=== PATIENT | female | born 1995 | race Caucasian/White ===

== ENCOUNTER 2023-02-12 12:04 | Inpatient (IN) ==
[2023-02-12 13:24] LABS: Basophils # (auto) 0.03 K/uL (0.00-0.20); Basophils % (auto) 0.3 %; Eosinophils % (auto) 1.9 %; Hematocrit (blood only) 36.9 % (37.0-47.0); Hemoglobin 12.2 g/dl (12.0-16.0); Immature Granulocytes # (auto) 0.07 K/uL (0.01-0.20); Immature Granulocytes % (auto) 0.7 %; Lymphocytes # (auto) 2.49 K/uL (1.20-3.40); Lymphocytes % (auto) 23.5 %; Mean Corpuscular Hemoglobin 27.3 pg (25.0-34.0); Mean Corpuscular Hgb Conc 33.1 g/dL (32.0-36.0); Mean Corpuscular Volume 82.6 fL (80.0-100.0); Mean Platelet Volume 13.6 fL (9.4-12.4); Monocytes # (auto) 0.71 K/uL (0.11-0.59); Monocytes % (auto) 6.7 %; Neutrophils # (auto) 7.11 K/uL (1.40-6.50); Neutrophils % (auto) 66.9 %; Platelet Count 226 K/uL (130-400); RDW Coefficient of Variation 15.2 % (11.5-14.5); RDW Standard Deviation 45.6 fL (36.4-46.3); Red Blood Count 4.47 M/uL (4.20-5.40); White Blood Count 10.61 K/ul (4.8-10.8)
[2023-02-12] MEDS ORDERED: NIFEdipine 10 MG CAP PO STA ×2 (13:36→15:42)
[2023-02-12 13:38] LABS: Creatinine Urine Random 50.6 mg/dl; Protein Creatinine Ratio Urine 0.5 (0-0.2); Total Protein Urine Random 26.6 mg/dl (0-11.9)
[2023-02-12 13:41] LABS: Albumin Globulin Ratio 1.1 (0.9-2); Albumin Level 3.2 gm/dl (3.4-5.0); BUN Creatinine Ratio 12.8 (10-20); Bilirubin,Total 0.2 mg/dl (0.2-1.0); Calcium 8.6 mg/dl (8.6-10.3); Creatinine Clr Calc Pharmacy 151.2 ml/min; Est GFR (African American) 122.5 ml/min; Est GFR (Non-African American) 105.7 ml/min; Potassium 4.3 mmol/L (3.5-5.1); Total Protein 6.2 gm/dl (6.0-8.3)
[2023-02-12] MEDS ORDERED: OXYTOCIN 30 UNITS/500 ML BAG IV PRN ×2 (14:00→14:04)
[2023-02-12] MEDS ORDERED: LIDOCAINE 1% LOCAL 20 ML VIAL INFIL PRN (14:00)
[2023-02-12] MEDS ORDERED: MAG SULFATE 4GM BOLUS FROM BAG IV ONE (14:06)
--- NOTE | 2023-02-12 14:18 | History & Physical Report ---
Date of Service February 12, 2023 Assessment & Plan (1) Obesity affecting , antepartum: (2) Pre-eclampsia: (3) Encounter for induction of labor: Plan Will admit for IOL due to diagnosis of pre-eclampsia with severe features Patient comfortable. VSS. Fetus category 1. Cervix favorable. Induction with Andrew balloon. Pit as needed. Epidural prn. Will monitor BPs and manage with anti-hypertensives as necessary. MgSO4 to be started. History of Present Illness Chief Complaint: IOL Primary Care Provider: [facility] Idania is a 27 y/o female currently at IUP 39 4/7 WGA with an MARGY 02/15/2023 as determined by certain LMP who is here for IOL due to diagnosis of pre-eclampsia with severe features. (-) contractions (occasional BHC) (+) movement (-) fluid loss (-) bloody show External FHT and external uterine monitors used * Category 1 tracing * Moderate FHT variability. Had regular appointments since the first trimester. OB Labs: Blood Type O Positive 07/10/22 Antibody Screen NEGATIVE 07/10/22 Hemoglobin 12.5 g/dl (12.0-16.0) 11/27/22 Hematocrit 37.3 % (37.0-47.0) 11/27/22 Mean Corpuscular Volume 80.5 fL (80.0-100.0) 08/27/22 Platelet Count 312 K/uL (130-400) 08/27/22 Rubella IgG Antibody Equivocal (Immune) L 07/10/22 Rapid Plasma Reagin Nonreactive (Nonreactive) 07/10/22 Hepatitis B Surface Antigen. NON-REACTIVE (NON-REACTIVE) 07/10/22 Hepatitis C Antibody (EIA) NON-REACTIVE (NON-REACTIVE) 07/10/22 HIV (1&2) Ag and Ab Confirmation NON-REACTIVE (NON-REACTIVE) 07/10/22 Glucose 1 Hour 50 gm Load 149 mg/dl (70-130) H 09/04/22 OB Optional Labs: Chlamydia trachomatis RNA Not Detected (NotDetected) 07/10/22 Neisseria gonorrhoeae RNA Not Detected (NotDetected) 07/10/22 Labs Reviewed: low risk panorama Allergies Allergy/AdvReac Type Severity Reaction Status Date / Time Penicillins Allergy Intermediate Rash Verified 02/12/23 12:26 Home Medications Medication Instructions Recorded Confirmed Type prenat.vits,bettie,lka-gvto-gsigt 1 tab PO DAILY 07/09/22 02/12/23 History famotidine 20 mg tablet 20 mg PO BID #20 tabs 08/27/22 02/12/23 Rx sucralfate 100 mg/mL oral 10 ml PO QID #420 mL 08/27/22 02/12/23 Rx suspension (Carafate) ondansetron 4 mg disintegrating 4 mg PO Q4H PRN nausea and 09/05/22 02/12/23 Rx tablet vomiting 0 days #12 tabs Patient History Medical History Chicken pox Depressed mood Hypertension Surgical History S/P wisdom tooth extraction Family History Grandfather (Maternal) Colorectal cancer Hypertension Kidney stone Mother Hypertension Unknown Hypertension Grandmother (Maternal) Diabetes High cholesterol Denies family history of Ovarian cancer Prostate cancer Myocardial infarction Breast cancer Social History Smoking Status: Never smoker Do You Dip or Chew Tobacco: No; Hx Alcohol Use: No Hx Substance Use: No Preferred Language: Monegasque Mental Retardation Nurse Required: No Beliefs That Will Affect Care: None marital status: Current Living Situation: Spouse Current Living Situation Comment: and cats, changes litter current occupational status: 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 Date GA wks Lbr Lgth wt Sex Type del Anes Place Del Prov ? 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 Denies shortness of breath or respiratory difficulty. no chest pain and no palpitations no dysuria + headache(s) (mild (rates it 1-3 out of 10 in severity)) Physical Exam Physical Exam: General: Alert, oriented x3. Obese habitus. Afebrile. No acute distress. Eyes: Pupils equal and reactive to light bilaterally. Extraocular movement intact bilaterally. Cardiac: Regular rate and rhythm, no murmurs/rubs/gallops. Respiratory: Clear to auscultation bilaterally a/p, no wheezes/rales/rhonchi. No increased work of breathing. Symmetrical chest rise. No respiratory distress. Abdomen: Gravid; FHR baseline 140-145 Position: Cephalic Pelvic: Fingertip/ 70/ -[address] Vicente Extremities: No lower extremity edema or swelling. No deep calf pain. Meenu's negative bilaterally Results & Data Vital Signs (Past 12 Hours) Vital Signs Temp Pulse Resp BP Pulse Ox 02/12/23 13:55 105 H 02/12/23 13:55 167/116 H 02/12/23 13:29 89 L 02/12/23 13:29 101 H 02/12/23 13:28 93 02/12/23 13:28 104 H 02/12/23 13:23 98 02/12/23 13:23 99 H 02/12/23 13:18 97 02/12/23 13:18 105 H 02/12/23 13:14 96 H 02/12/23 13:14 156/109 H 02/12/23 13:13 98 02/12/23 13:13 99 H 02/12/23 13:08 97 02/12/23 13:08 95 H 02/12/23 13:05 102 H 02/12/23 13:05 187/107 H 02/12/23 13:03 98 02/12/23 13:03 108 H 02/12/23 12:58 98 02/12/23 12:58 104 H 02/12/23 12:55 102 H 02/12/23 12:55 179/105 H 02/12/23 12:53 97 02/12/23 12:53 104 H 02/12/23 12:48 98 02/12/23 12:48 111 H 02/12/23 12:43 98 02/12/23 12:43 105 H 02/12/23 12:34 98 02/12/23 12:34 105 H 02/12/23 12:34 148/103 H 02/12/23 12:29 97 02/12/23 12:29 107 H 02/12/23 12:27 36.7 C 22 02/12/23 12:24 110 H 02/12/23 12:24 105 H 145/103 H 97 02/12/23 12:19 107 H 96 02/12/23 12:14 96 02/12/23 12:14 110 H 02/12/23 12:14 106 H 92 Resident Activity Tracking Resident Involvement: Resident Care Provided Care Provided: OB Delivery
[2023-02-12] MEDS: LACTATED RINGER'S 1,000 ML IV PRN ×2 (16:22→21:37)
[2023-02-12] MEDS: MAGNESIUM SULFATE / WTR 40 GM/1,000 ML BAG IV SCH (16:56)
[2023-02-12] MEDS ORDERED: LABETALOL HCL IV 5 MG/ML 20ML IV STA (17:05)
[2023-02-12] MEDS ORDERED: ePHEDrine sulfate 50 MG/ML AMP ONE (19:42)
[2023-02-12] MEDS ORDERED: fentANYL 2 MCG/ML BUPIVacaine 0.125%-NSS 100ML BAG ONE (19:42)
[2023-02-12] MEDS ORDERED: fentaNYL citrate PF 100 MCG/2 ML VIAL ONE (19:42)
[2023-02-12] MEDS ORDERED: SODIUM CHLORIDE 0.9% PF INJ 10 ML VIAL ONE (19:42)
[2023-02-12] MEDS ORDERED: BUPIVACAINE 0.25% PF 30 ML VIAL ONE (19:43)
[2023-02-12] MEDS ORDERED: LIDOCAINE 2%/EPINEPHRINE 1:200,000 20 ML PF ONE (19:43)
[2023-02-12] MEDS ORDERED: SODIUM CHLORIDE 0.9% PF INJ 10 ML VIAL EPI STA (20:06)
[2023-02-12] MEDS ORDERED: fentaNYL citrate PF 100 MCG/2 ML VIAL EPI STA (20:06)
[2023-02-12] MEDS ORDERED: ROPIVACAINE 0.5% PF 5 MG/ML 20 ML VIAL EPI PRN (20:06)
[2023-02-12] MEDS ORDERED: NALOXONE HCL 1 MG in SODIUM CHLORIDE 0.9% 1,000 ML IV PRN (20:06)
[2023-02-12] MEDS ORDERED: BUPIVACAINE 0.25% PF 30 ML VIAL EPI STA (20:06)
[2023-02-12] MEDS ORDERED: LIDOCAINE 2% MPF LOCAL 5 ML VIAL EPI PRN (20:06)
[2023-02-12] MEDS ORDERED: NALOXONE HCL 0.4 MG/1 ML VIAL/CARP IV PRN (20:06)
[2023-02-12] MEDS ORDERED: BUPIVACAINE 0.25% PF 30 ML VIAL EPI PRN (20:06)
[2023-02-12] MEDS ORDERED: NALBUPHINE HCL INJ 10 MG/ML AMP IV PRN (20:06)
[2023-02-12] MEDS ORDERED: fentaNYL citrate PF 100 MCG/2 ML VIAL EPI PRN (20:06)
[2023-02-12] MEDS ORDERED: LIDOCAINE 2%/EPINEPHRINE 1:200,000 20 ML PF EPI STA (20:06)
[2023-02-12] MEDS ORDERED: SODIUM CHLORIDE 0.9% PF INJ 10 ML VIAL EPI PRN (20:06)
[2023-02-12] MEDS ORDERED: diphenhydrAMINE 50 MG/ML VIAL IV PRN (20:06)
--- NOTE | 2023-02-12 20:06 | Anesthesiology Consultation ---
Date of Service February 12, 2023 Assessment & Plan (1) Encounter for pre-operative examination: Chart Review Chart Review: Patient NOT seen in Pre Admission Testing and Acceptable Risk for Labor Epidural Consults Requested none History Height/Weight Height: 5 ft 4 in Weight: 135.171 kg Allergies Allergy/AdvReac Type Severity Reaction Status Date / Time Penicillins Allergy Intermediate Rash Verified 02/12/23 12:26 Medications Home Medications Medication Instructions Recorded Confirmed Last Taken prenat.vits,bettie,bph-grna-bepif 1 tab PO DAILY 07/09/22 02/12/23 02/11/23 famotidine 20 mg tablet 20 mg PO BID #20 tabs 08/27/22 02/12/23 02/11/23 sucralfate 100 mg/mL oral 10 ml PO QID #420 mL 08/27/22 02/12/23 Unknown suspension (Carafate) ondansetron 4 mg disintegrating 4 mg PO Q4H PRN nausea and 09/05/22 02/12/23 Unknown tablet vomiting 0 days #12 tabs aspirin 81 mg tablet 81 mg PO DAILY 02/12/23 02/12/23 02/11/23 doxylamine succinate 25 mg tablet 1 mg PO HS 02/12/23 02/12/23 Unknown (Unisom (doxylamine)) omeprazole 20 mg capsule,delayed 20 mg PO DAILY 02/12/23 02/12/23 02/11/23 release Active Medications Generic Name Dose Route Start Last Admin Trade Name Freq PRN Reason Stop Dose Admin Lactated Ringer's 1,000 mls @ 125 mls/hr 02/12/23 14:00 02/12/23 16:57 Lr IV 02/14/23 13:59 75 mls/hr .Q8H PRN Infusion L&D Protocol Protocol Oxytocin 30 units in 500 mls @ 10 mls/hr 02/12/23 14:04 02/12/23 19:02 Pitocin IV 02/14/23 14:03 0.6 units/hr .Q24H PRN 10 mls/hr Labor Induction/Augmentation Titration Protocol 0.6 UNITS/HR Magnesium Sulfate 40 gm in 1,000 mls @ 50 mls/hr 02/12/23 14:15 02/12/23 19:03 Magnesium Sulfate / Wtr IV 03/14/23 14:14 50 mls/hr .Q20H BREANNE Infusion Past Medical History Medical History Chicken pox Depressed mood Hypertension Past Family History Family History Grandfather (Maternal) Colorectal cancer Hypertension Kidney stone Mother Hypertension Unknown Hypertension Grandmother (Maternal) Diabetes High cholesterol Denies family history of Ovarian cancer Prostate cancer Myocardial infarction Breast cancer Past Surgical History Surgical History S/P wisdom tooth extraction Social History Smoking Status: Never smoker Do You Dip or Chew Tobacco: No Hx Alcohol Use: No Hx Substance Use: No Physical Exam Vital Signs Last Vital Signs Temp 98.2 F 02/12/23 19:01 Pulse 97 H 02/12/23 19:59 Resp 22 02/12/23 19:01 BP 134/75 02/12/23 19:59 Pulse Ox 100 02/12/23 19:59 O2 Del Method Room Air 02/12/23 19:01 Testing Laboratory Results 02/12/23 13:06 02/12/23 13:06 Blood Type O Positive 02/12/23 14:23 Antibody Screen NEGATIVE 02/12/23 14:23
[2023-02-12] MEDS: ePHEDrine sulfate 50 MG/ML AMP IV PRN ×2 (20:54→21:04)
[2023-02-12] MEDS ORDERED: ONDANSETRON INJ 2 MG/ML 2 ML VIAL IV PRN (21:09)
[2023-02-12] MEDS ORDERED: ONDANSETRON INJ 2 MG/ML 2 ML VIAL ONE (21:13)
[2023-02-12] MEDS: CALCIUM CARBONATE 500 MG CHEWABLE TAB PO PRN (21:52)
[2023-02-12] MEDS ORDERED: Nursing to Pharmacy Communication SCH (22:00)
[2023-02-12] MEDS ORDERED: FAMOTIDINE 20 MG in SYRINGE 3 ML IV STA (22:17)
--- NOTE | 2023-02-12 22:49 | Labor Progress Brief Note ---
Date of Service February 12, 2023 Subjective Reason For Note: Routine Evaluation cervical balloon placed under direct visualization at about 1600 today- and pitocin induction begun at that time balloon expelled at 1740 epidural analgesia effective but BP dropped which caused nausea and vomiting even after BP normalized patient has significant acid reflux for which she takes Pepcid and Tums. Still vomiting after given Tums and so started IV Pepcid. pitocin at 10 milliunits FHT's reassuring- contractions Q 2-3 minutes-mild /moderate strength cervix 5-6cm/90/-2 AROM for clear fluid patient now comfortable on her left side with nausea better continue current induction plan Review of Systems All systems reviewed & are unremarkable except as noted in HPI & below Assessment & Plan Admission and Anticipated Discharge Date Admission Date: February 12, 2023 Physical Exam Constitutional: WD/WN, vitals as above Psychiatric: A+Ox3, euthymic affect Results & Data Vital Signs (Past 12 Hours) Vital Signs Temp Pulse Resp BP Pulse Ox O2 Del Method 02/12/23 22:37 100 02/12/23 22:37 94 H 02/12/23 22:32 99 02/12/23 22:32 94 H 02/12/23 22:26 100 02/12/23 22:26 95 H 02/12/23 22:21 100 02/12/23 22:21 95 H 02/12/23 22:16 99 02/12/23 22:16 108 H 02/12/23 22:12 93 H 02/12/23 22:12 144/92 H 02/12/23 22:11 99 02/12/23 22:11 90 02/12/23 22:06 100 02/12/23 22:06 95 H 02/12/23 22:02 93 H 02/12/23 22:02 140/86 02/12/23 22:01 99 02/12/23 22:01 93 H 02/12/23 21:57 90 02/12/23 21:57 135/92 02/12/23 21:56 100 02/12/23 21:56 92 H 02/12/23 21:51 100 02/12/23 21:51 91 H 02/12/23 21:51 135/94 02/12/23 21:46 100 02/12/23 21:46 94 H 02/12/23 21:46 137/82 11/02/23 21:42 100 H 02/12/23 21:42 120/78 02/12/23 21:41 99 02/12/23 21:41 102 H 02/12/23 21:38 86 02/12/23 21:38 130/85 02/12/23 21:36 100 02/12/23 21:36 92 H 02/12/23 21:33 94 H 02/12/23 21:33 141/63 H 02/12/23 21:32 89 02/12/23 21:32 180/101 H 02/12/23 21:31 97 02/12/23 21:31 90 02/12/23 21:31 18 02/12/23 21:31 18 02/12/23 21:26 98 02/12/23 21:26 95 H 02/12/23 21:25 88 02/12/23 21:25 136/68 02/12/23 21:21 99 02/12/23 21:21 96 H 02/12/23 21:21 134/80 02/12/23 21:17 92 02/12/23 21:17 103 H 02/12/23 21:17 148/96 H 02/12/23 21:16 95 02/12/23 21:16 92 H 02/12/23 21:11 100 02/12/23 21:11 103 H 02/12/23 21:11 102 H 02/12/23 21:11 134/84 02/12/23 21:07 100 H 02/12/23 21:07 129/80 02/12/23 21:06 96 02/12/23 21:06 102 H 02/12/23 21:01 100 02/12/23 21:01 103 H 02/12/23 21:01 95 H 02/12/23 21:01 117/63 02/12/23 20:59 103 H 02/12/23 20:59 122/68 02/12/23 20:56 100 02/12/23 20:56 115 H 02/12/23 20:56 141/87 H 02/12/23 20:51 100 02/12/23 20:51 81 02/12/23 20:51 78 02/12/23 20:51 103/56 L 02/12/23 20:48 20 02/12/23 20:48 20 02/12/23 20:47 100 H 02/12/23 20:47 122/65 02/12/23 20:46 100 02/12/23 20:46 99 H 02/12/23 20:44 100 H 02/12/23 20:44 128/72 02/12/23 20:41 100 02/12/23 20:41 97 H 02/12/23 20:36 100 02/12/23 20:36 109 H 02/12/23 20:36 100 H 02/12/23 20:36 124/73 02/12/23 20:31 99 02/12/23 20:31 103 H 02/12/23 20:30 20 02/12/23 20:30 20 02/12/23 20:30 117 H 02/12/23 20:30 141/76 H 02/12/23 20:28 103 H 02/12/23 20:28 131/70 02/12/23 20:27 111 H 02/12/23 20:27 142/79 H 02/12/23 20:26 99 02/12/23 20:26 106 H 02/12/23 20:25 18 02/12/23 20:25 18 02/12/23 20:25 103 H 02/12/23 20:25 139/71 02/12/23 20:22 106 H 02/12/23 20:22 139/96 02/12/23 20:21 100 02/12/23 20:21 114 H 02/12/23 20:16 100 02/12/23 20:16 107 H 02/12/23 20:11 97 02/12/23 20:11 121 H 02/12/23 20:04 99 02/12/23 20:04 97 H 02/12/23 20:00 18 02/12/23 20:00 18 02/12/23 19:59 100 02/12/23 19:59 97 H 02/12/23 19:59 134/75 02/12/23 19:54 100 02/12/23 19:54 97 H 02/12/23 19:49 99 02/12/23 19:49 105 H 02/12/23 19:46 107 H 02/12/23 19:46 134/72 02/12/23 19:44 100 02/12/23 19:44 109 H 02/12/23 19:39 100 02/12/23 19:39 102 H 02/12/23 19:34 99 02/12/23 19:34 100 H 02/12/23 19:32 102 H 02/12/23 19:32 175/88 H 02/12/23 19:29 98 02/12/23 19:29 123 H 02/12/23 19:17 100 02/12/23 19:17 99 H 02/12/23 19:17 121/95 02/12/23 19:12 100 02/12/23 19:12 97 H 02/12/23 19:07 100 02/12/23 19:07 104 H 02/12/23 19:02 100 02/12/23 19:02 102 H 02/12/23 19:01 22 02/12/23 19:01 98.2 F 22 Room Air 02/12/23 19:00 94 H 02/12/23 19:00 144/91 H 02/12/23 18:57 100 02/12/23 18:57 95 H 02/12/23 18:52 99 02/12/23 18:52 96 H 02/12/23 18:47 99 02/12/23 18:47 105 H 02/12/23 18:44 102 H 02/12/23 18:44 171/80 H 02/12/23 18:42 99 02/12/23 18:42 105 H 02/12/23 18:37 100 02/12/23 18:37 116 H 02/12/23 18:30 18 02/12/23 18:30 18 02/12/23 18:30 101 H 02/12/23 18:30 185/102 H 02/12/23 18:28 100 02/12/23 18:28 100 H 02/12/23 18:23 100 02/12/23 18:23 99 H 02/12/23 18:18 99 02/12/23 18:18 98 H 02/12/23 18:16 96 H 02/12/23 18:16 162/89 H 02/12/23 18:13 100 02/12/23 18:13 95 H 02/12/23 18:08 100 02/12/23 18:08 97 H 02/12/23 18:03 100 02/12/23 18:03 95 H 02/12/23 18:00 18 02/12/23 17:59 96 H 02/12/23 17:59 150/88 H 02/12/23 17:58 99 02/12/23 17:58 93 H 02/12/23 17:53 100 02/12/23 17:53 96 H 02/12/23 17:48 99 02/12/23 17:48 93 H 02/12/23 17:45 94 H 02/12/23 17:45 145/93 H 02/12/23 17:43 99 02/12/23 17:43 92 H 02/12/23 17:38 98 02/12/23 17:38 100 H 02/12/23 17:33 99 02/12/23 17:33 97 H 02/12/23 17:30 98.2 F 02/12/23 17:30 18 02/12/23 17:30 18 02/12/23 17:28 100 02/12/23 17:28 102 H 02/12/23 17:26 93 H 02/12/23 17:26 148/89 H 02/12/23 17:23 99 02/12/23 17:23 92 H 02/12/23 17:18 99 02/12/23 17:18 101 H 02/12/23 17:14 109 H 186/105 H 02/12/23 17:14 109 H 02/12/23 17:14 186/105 H 02/12/23 17:00 99 02/12/23 17:00 99 H 02/12/23 16:55 99 02/12/23 16:55 108 H 02/12/23 16:54 104 H 02/12/23 16:54 158/105 H 02/12/23 16:50 98 02/12/23 16:50 103 H 02/12/23 16:46 105 H 02/12/23 16:46 190/96 H 02/12/23 16:45 100 02/12/23 16:45 106 H 02/12/23 16:40 100 02/12/23 16:40 101 H 02/12/23 16:39 118 H 02/12/23 16:39 146/105 H 02/12/23 16:35 99 02/12/23 16:35 113 H 02/12/23 16:34 102 H 02/12/23 16:34 145/101 H 02/12/23 16:24 112 H 02/12/23 16:24 144/101 H 02/12/23 15:55 107 H 02/12/23 15:55 151/99 H 02/12/23 15:25 93 H 02/12/23 15:25 166/107 H 02/12/23 14:55 106 H 02/12/23 14:55 174/104 H 02/12/23 14:26 100 H 02/12/23 14:26 150/100 H 02/12/23 13:55 105 H 02/12/23 13:55 167/116 H 02/12/23 13:29 89 L 02/12/23 13:29 101 H 02/12/23 13:28 93 02/12/23 13:28 104 H 02/12/23 13:23 98 02/12/23 13:23 99 H 02/12/23 13:18 97 02/12/23 13:18 105 H 02/12/23 13:14 96 H 02/12/23 13:14 156/109 H 02/12/23 13:13 98 02/12/23 13:13 99 H 02/12/23 13:08 97 02/12/23 13:08 95 H 02/12/23 13:05 102 H 02/12/23 13:05 187/107 H 02/12/23 13:03 98 02/12/23 13:03 108 H 02/12/23 12:58 98 02/12/23 12:58 104 H 02/12/23 12:55 102 H 02/12/23 12:55 179/105 H 02/12/23 12:53 97 02/12/23 12:53 104 H 02/12/23 12:48 98 02/12/23 12:48 111 H 02/12/23 12:43 98 02/12/23 12:43 105 H 02/12/23 12:34 98 02/12/23 12:34 105 H 02/12/23 12:34 148/103 H 02/12/23 12:29 97 02/12/23 12:29 107 H 02/12/23 12:27 98.1 F 22 02/12/23 12:24 110 H 02/12/23 12:24 105 H 145/103 H 97 02/12/23 12:19 107 H 96 02/12/23 12:14 96 02/12/23 12:14 110 H 02/12/23 12:14 106 H 92 02/12/23 12:12 22 02/12/23 12:12 22
[2023-02-13] MEDS: METOCLOPRAMIDE HCL INJ 5 MG/ML 2 ML VIAL IV PRN ×2 (01:15→12:02)
[2023-02-13] MEDS: fentANYL 2 MCG/ML BUPIVacaine 0.125%-NSS 100ML BAG EPI PRN ×2 (04:25→11:49)
[2023-02-13] MEDS ORDERED: PROMETHAZINE HCL 12.5 MG in SODIUM CHLORIDE 0.9% 50 ML IV STA (05:09)
[2023-02-13] MEDS ORDERED: FAMOTIDINE 20 MG in SYRINGE 3 ML IV ONE (05:15)
[2023-02-13] MEDS ORDERED: NURSING L&D Epidural Breakthrough Pain Update ONE (05:26)
--- NOTE | 2023-02-13 05:29 | Labor Progress Brief Note ---
Date of Service February 13, 2023 Subjective Reason For Note: Requested By DONIS campos at 16 milliunits now contractions now every 3 minutes. cervix 7/100/0 vertex but not well applied to cervix moderate variables with contractions unless she is on her right side although still vomiting persistently when she is on her right side. patient states that when she starts to vomit it is difficult for her to stop. now mostly dry heaves despite, IV pepcid, reglan, & zofran. she doesn't like the way she feels with phenergan which causes her to feel very tired but unable to sleep. currently exhausted as the dry heaves are preventing her from resting well. willing to try phenergan IV 12.5 mg to see if this will break vomiting cycle will also give another dose of IV pepcid to reduce stomach acid production. urine is blood tinged now but appears to be because the constant retching is pulling on the Andrew which has now been readjusted. BP has normalized now but will recheck labs now. Assessment & Plan Admission and Anticipated Discharge Date Admission Date: February 12, 2023 Results & Data Vital Signs (Past 12 Hours) Vital Signs Temp Pulse Resp BP Pulse Ox O2 Del Method 02/13/23 05:10 101 H 100 02/13/23 05:05 103 H 100 02/13/23 05:04 106 H 116/67 02/13/23 05:00 113 H 100 02/13/23 04:55 110 H 100 02/13/23 04:50 115 H 100 02/13/23 04:49 102 H 116/70 02/13/23 04:45 110 H 100 02/13/23 04:40 117 H 100 02/13/23 04:35 110 H 100 02/13/23 04:30 103 H 100 02/13/23 04:25 107 H 100 02/13/23 04:20 114 H 100 02/13/23 04:15 109 H 100 02/13/23 04:10 110 H 100 02/13/23 04:06 117 H 131/84 02/13/23 04:05 102 H 100 02/13/23 04:00 103 H 100 02/13/23 03:55 99 H 100 02/13/23 03:50 108 H 100 02/13/23 03:49 111 H 142/87 H 02/13/23 03:45 110 H 100 02/13/23 03:40 101 H 99 02/13/23 03:35 107 H 100 02/13/23 03:34 104 H 126/84 02/13/23 03:30 130 H 100 02/13/23 03:25 103 H 99 02/13/23 03:20 97.7 F 107 H 16 99 02/13/23 03:19 98 H 124/67 02/13/23 03:15 96 H 97 02/13/23 03:10 96 H 96 02/13/23 03:05 97 02/13/23 03:05 96 H 02/13/23 03:05 96 H 125/67 02/13/23 03:00 97 H 96 02/13/23 02:55 97 H 96 02/13/23 02:50 102 H 99 02/13/23 02:49 100 H 116/59 L 02/13/23 02:45 107 H 99 02/13/23 02:40 99 H 99 02/13/23 02:35 96 H 98 02/13/23 02:34 100 H 114/56 L 02/13/23 02:30 99 H 100 02/13/23 02:25 99 H 98 02/13/23 02:20 97 H 98 02/13/23 02:19 97 H 110/57 L 02/13/23 02:15 100 H 100 02/13/23 02:10 109 H 20 98 02/13/23 02:06 106 H 111/59 L 02/13/23 02:05 104 H 99 02/13/23 02:00 99 H 99 02/13/23 01:55 99 H 98 02/13/23 01:50 97 H 134/86 98 02/13/23 01:45 97 H 97 02/13/23 01:40 94 H 97 02/13/23 01:35 97 H 97 02/13/23 01:34 96 H 135/74 02/13/23 01:30 93 H 97 02/13/23 01:25 98 H 98 02/13/23 01:20 105 H 99 02/13/23 01:19 99 H 138/88 02/13/23 01:18 18 02/13/23 01:18 18 02/13/23 01:18 18 02/13/23 01:18 18 02/13/23 01:15 102 H 99 02/13/23 01:10 113 H 99 02/13/23 01:05 99 02/13/23 01:05 102 H 02/13/23 01:05 99 H 146/96 H 02/13/23 01:00 97 H 100 02/13/23 00:55 105 H 99 02/13/23 00:50 103 H 100 02/13/23 00:49 104 H 131/65 02/13/23 00:34 95 H 119/67 02/13/23 00:27 18 02/13/23 00:27 97.7 F 18 02/13/23 00:19 96 H 123/74 02/13/23 00:17 97 H 100 02/13/23 00:12 97 H 99 02/13/23 00:07 92 H 99 02/13/23 00:04 97 H 122/77 02/13/23 00:02 104 H 100 02/13/23 00:00 16 02/13/23 00:00 16 02/12/23 23:57 98 02/12/23 23:57 97 H 02/12/23 23:52 99 02/12/23 23:52 98 H 02/12/23 23:49 99 H 02/12/23 23:49 114/69 02/12/23 23:47 99 02/12/23 23:47 105 H 02/12/23 23:42 99 02/12/23 23:42 94 H 02/12/23 23:37 100 02/12/23 23:37 93 H 02/12/23 23:35 96 H 02/12/23 23:35 120/74 02/12/23 23:32 100 02/12/23 23:32 97 H 02/12/23 23:27 100 02/12/23 23:27 102 H 02/12/23 23:22 100 02/12/23 23:22 94 H 02/12/23 23:20 95 H 02/12/23 23:20 119/69 02/12/23 23:17 100 02/12/23 23:17 101 H 02/12/23 23:12 100 02/12/23 23:12 100 H 02/12/23 23:07 97 02/12/23 23:07 88 02/12/23 23:04 88 02/12/23 23:04 113/64 02/12/23 23:02 97 02/12/23 23:02 94 H 02/12/23 22:57 98 02/12/23 22:57 93 H 02/12/23 22:52 98 02/12/23 22:52 86 02/12/23 22:49 85 02/12/23 22:49 123/73 02/12/23 22:47 99 02/12/23 22:47 93 H 02/12/23 22:45 18 02/12/23 22:45 97.7 F 18 02/12/23 22:45 18 02/12/23 22:45 97.7 F 18 02/12/23 22:42 100 02/12/23 22:42 95 H 02/12/23 22:37 100 02/12/23 22:37 94 H 02/12/23 22:32 99 02/12/23 22:32 94 H 02/12/23 22:26 100 02/12/23 22:26 95 H 02/12/23 22:21 100 02/12/23 22:21 95 H 02/12/23 22:16 99 02/12/23 22:16 108 H 02/12/23 22:12 93 H 02/12/23 22:12 144/92 H 02/12/23 22:11 99 02/12/23 22:11 90 02/12/23 22:06 100 02/12/23 22:06 95 H 02/12/23 22:02 22 02/12/23 22:02 22 02/12/23 22:02 22 02/12/23 22:02 22 02/12/23 22:02 93 H 02/12/23 22:02 140/86 02/12/23 22:01 99 02/12/23 22:01 93 H 02/12/23 21:57 90 02/12/23 21:57 135/92 02/12/23 21:56 100 02/12/23 21:56 92 H 02/12/23 21:51 100 02/12/23 21:51 91 H 02/12/23 21:51 135/94 02/12/23 21:46 100 02/12/23 21:46 94 H 02/12/23 21:46 137/82 02/12/23 21:42 100 H 02/12/23 21:42 120/78 02/12/23 21:41 99 02/12/23 21:41 102 H 02/12/23 21:38 86 02/12/23 21:38 130/85 02/12/23 21:36 100 02/12/23 21:36 92 H 02/12/23 21:33 94 H 02/12/23 21:33 141/63 H 02/12/23 21:32 89 02/12/23 21:32 180/101 H 02/12/23 21:31 97 02/12/23 21:31 90 02/12/23 21:31 18 02/12/23 21:31 18 02/12/23 21:26 98 02/12/23 21:26 95 H 02/12/23 21:25 88 02/12/23 21:25 136/68 02/12/23 21:21 99 02/12/23 21:21 96 H 02/12/23 21:21 134/80 02/12/23 21:17 92 02/12/23 21:17 103 H 02/12/23 21:17 148/96 H 02/12/23 21:16 95 02/12/23 21:16 92 H 02/12/23 21:11 100 02/12/23 21:11 103 H 02/12/23 21:11 102 H 02/12/23 21:11 134/84 02/12/23 21:07 100 H 02/12/23 21:07 129/80 02/12/23 21:06 96 02/12/23 21:06 102 H 02/12/23 21:01 100 02/12/23 21:01 103 H 02/12/23 21:01 95 H 02/12/23 21:01 117/63 02/12/23 20:59 103 H 02/12/23 20:59 122/68 02/12/23 20:56 100 02/12/23 20:56 115 H 02/12/23 20:56 141/87 H 02/12/23 20:51 100 02/12/23 20:51 81 02/12/23 20:51 78 02/12/23 20:51 103/56 L 02/12/23 20:48 20 02/12/23 20:48 20 02/12/23 20:47 100 H 02/12/23 20:47 122/65 02/12/23 20:46 100 02/12/23 20:46 99 H 02/12/23 20:44 100 H 02/12/23 20:44 128/72 02/12/23 20:41 100 02/12/23 20:41 97 H 02/12/23 20:36 100 02/12/23 20:36 109 H 02/12/23 20:36 100 H 02/12/23 20:36 124/73 02/12/23 20:31 99 02/12/23 20:31 103 H 02/12/23 20:30 20 02/12/23 20:30 20 02/12/23 20:30 117 H 02/12/23 20:30 141/76 H 02/12/23 20:28 103 H 02/12/23 20:28 131/70 02/12/23 20:27 111 H 02/12/23 20:27 142/79 H 02/12/23 20:26 99 02/12/23 20:26 106 H 02/12/23 20:25 18 02/12/23 20:25 18 02/12/23 20:25 103 H 02/12/23 20:25 139/71 02/12/23 20:22 106 H 02/12/23 20:22 139/96 02/12/23 20:21 100 02/12/23 20:21 114 H 02/12/23 20:16 100 02/12/23 20:16 107 H 02/12/23 20:11 97 02/12/23 20:11 121 H 02/12/23 20:04 99 02/12/23 20:04 97 H 02/12/23 20:00 18 02/12/23 20:00 18 02/12/23 19:59 100 02/12/23 19:59 97 H 02/12/23 19:59 134/75 02/12/23 19:54 100 02/12/23 19:54 97 H 02/12/23 19:49 99 02/12/23 19:49 105 H 02/12/23 19:46 107 H 02/12/23 19:46 134/72 02/12/23 19:44 100 02/12/23 19:44 109 H 02/12/23 19:39 100 02/12/23 19:39 102 H 02/12/23 19:34 99 02/12/23 19:34 100 H 02/12/23 19:32 102 H 02/12/23 19:32 175/88 H 02/12/23 19:29 98 02/12/23 19:29 123 H 02/12/23 19:17 100 02/12/23 19:17 99 H 02/12/23 19:17 121/95 02/12/23 19:12 100 02/12/23 19:12 97 H 02/12/23 19:07 100 02/12/23 19:07 104 H 02/12/23 19:02 100 02/12/23 19:02 102 H 02/12/23 19:01 22 02/12/23 19:01 98.2 F 22 Room Air 02/12/23 19:00 94 H 02/12/23 19:00 144/91 H 02/12/23 18:57 100 02/12/23 18:57 95 H 02/12/23 18:52 99 02/12/23 18:52 96 H 02/12/23 18:47 99 02/12/23 18:47 105 H 02/12/23 18:44 102 H 02/12/23 18:44 171/80 H 02/12/23 18:42 99 02/12/23 18:42 105 H 02/12/23 18:37 100 02/12/23 18:37 116 H 02/12/23 18:30 18 02/12/23 18:30 18 02/12/23 18:30 101 H 02/12/23 18:30 185/102 H 02/12/23 18:28 100 02/12/23 18:28 100 H 02/12/23 18:23 100 02/12/23 18:23 99 H 02/12/23 18:18 99 02/12/23 18:18 98 H 02/12/23 18:16 96 H 02/12/23 18:16 162/89 H 02/12/23 18:13 100 02/12/23 18:13 95 H 02/12/23 18:08 100 02/12/23 18:08 97 H 02/12/23 18:03 100 02/12/23 18:03 95 H 02/12/23 18:00 18 02/12/23 17:59 96 H 02/12/23 17:59 150/88 H 02/12/23 17:58 99 02/12/23 17:58 93 H 02/12/23 17:53 100 02/12/23 17:53 96 H 02/12/23 17:48 99 02/12/23 17:48 93 H 02/12/23 17:45 94 H 02/12/23 17:45 145/93 H 02/12/23 17:43 99 02/12/23 17:43 92 H 02/12/23 17:38 98 02/12/23 17:38 100 H 02/12/23 17:33 99 02/12/23 17:33 97 H 02/12/23 17:30 98.2 F 02/12/23 17:30 18 02/12/23 17:30 18 02/12/23 17:28 100 02/12/23 17:28 102 H 02/12/23 17:26 93 H 02/12/23 17:26 148/89 H 02/12/23 17:23 99 02/12/23 17:23 92 H 02/12/23 17:18 99 02/12/23 17:18 101 H
[2023-02-13] MEDS: LACTATED RINGER'S 1,000 ML IV PRN ×2 (05:53→14:32)
[2023-02-13 07:12] LABS: Basophils # (auto) 0.04 K/uL (0.00-0.20); Basophils % (auto) 0.2 %; Eosinophils # (auto) 0.01 K/uL (0.00-0.50); Eosinophils % (auto) 0.1 %; Hematocrit (blood only) 36.7 % (37.0-47.0); Immature Granulocytes # (auto) 0.14 K/uL (0.01-0.20); Immature Granulocytes % (auto) 0.7 %; Lymphocytes # (auto) 1.64 K/uL (1.20-3.40); Lymphocytes % (auto) 8.4 %; Mean Corpuscular Hgb Conc 32.7 g/dL (32.0-36.0); Mean Corpuscular Volume 82.5 fL (80.0-100.0); Mean Platelet Volume 13.6 fL (9.4-12.4); Monocytes # (auto) 1.27 K/uL (0.11-0.59); Monocytes % (auto) 6.5 %; Neutrophils # (auto) 16.35 K/uL (1.40-6.50); Neutrophils % (auto) 84.1 %; Platelet Count 227 K/uL (130-400); RDW Coefficient of Variation 15.5 % (11.5-14.5); RDW Standard Deviation 46.2 fL (36.4-46.3); Red Blood Count 4.45 M/uL (4.20-5.40); White Blood Count 19.45 K/ul (4.8-10.8)
[2023-02-13 07:25] LABS: Albumin Globulin Ratio 1.1 (0.9-2); Albumin Level 3.2 gm/dl (3.4-5.0); BUN Creatinine Ratio 10.7 (10-20); Bilirubin,Total 0.3 mg/dl (0.2-1.0); Calcium 7.4 mg/dl (8.6-10.3); Creatinine Clr Calc Pharmacy 140.4 ml/min; Est GFR (Non-African American) 96.6 ml/min; Globulin 2.9 gm/dl (2.5-4.0); Potassium 4.2 mmol/L (3.5-5.1); Total Protein 6.1 gm/dl (6.0-8.3)
[2023-02-13] MEDS ORDERED: FAMOTIDINE 20 MG in SYRINGE 3 ML IV SCH (09:00)
[2023-02-13] MEDS ORDERED: PROMETHAZINE HCL 12.5 MG in SODIUM CHLORIDE 0.9% 50 ML IV PRN (09:10)
--- NOTE | 2023-02-13 09:24 | Operative Report ---
[facility] Post Operative Report Surgeon Paty Urban MD Estimated Blood Loss 500 Fluids 1L crystalloid, UOP 50cc clear urine I attest to the content of the Intraoperative Record and any orders documented therein. Any exceptions are noted below.
--- NOTE | 2023-02-13 10:42 | Labor Progress Brief Note ---
Date of Service February 13, 2023 Subjective resting more comfortably, sleepy from phenergan but not vomiting. Epidural working well Assessment & Plan (1) Obesity affecting , antepartum: (2) Pre-eclampsia: (3) Encounter for induction of labor: Plan 27 yo at 39 5/7 wga admitted for iol pet w/ sf mild range BPs Fetus cat 1 currently Labor - pit at 9 after restarting, seems like there is progress from prior exam so will continue augmentation PET - on mag, sutherland replaced due to not draining and put 200cc over 2.5hrs of dark bloody/concentrated urine. Had been vomiting profusely overnight so suspect the aspect of bloody is due to sutherland irritation as output is appropriate now and Cr is wnl. Repeat PET labs this am were otherwise reassuring. Will continue to monitor GBS neg epidural in place Admission and Anticipated Discharge Date Admission Date: February 12, 2023 Physical Exam Genitourinary: Manual OB Exam: + cervical dilation (8-9), + cervical effacement 90% and + station 0 OB Exam Monitor Tracing: + external FHT monitor used, + external uterine monitor used (q4-5) and + category I (135/mod/+accel/-decel) Results & Data Vital Signs (Past 12 Hours) Vital Signs Temp Pulse Resp BP Pulse Ox 02/13/23 10:34 105 H 144/88 H 02/13/23 10:30 106 H 100 02/13/23 10:25 103 H 100 02/13/23 10:20 95 H 98 02/13/23 10:19 96 H 141/88 H 02/13/23 10:15 96 H 98 02/13/23 10:10 90 97 02/13/23 10:05 91 H 98 02/13/23 10:04 92 H 144/88 H 02/13/23 10:00 20 02/13/23 10:00 95 H 98 02/13/23 09:55 92 H 98 02/13/23 09:50 92 H 98 02/13/23 09:49 93 H 144/83 H 02/13/23 09:45 92 H 98 02/13/23 09:40 99 H 97 02/13/23 09:35 91 H 97 02/13/23 09:34 90 138/84 02/13/23 09:30 88 100 02/13/23 09:25 92 H 99 02/13/23 09:20 98 H 99 02/13/23 09:19 94 H 20 138/82 02/13/23 09:15 97 H 98 02/13/23 09:10 92 H 99 02/13/23 09:05 92 H 99 02/13/23 09:04 90 136/82 02/13/23 09:00 20 02/13/23 09:00 96 H 99 02/13/23 08:55 93 H 99 02/13/23 08:50 95 H 100 02/13/23 08:49 93 H 134/79 02/13/23 08:45 95 H 99 02/13/23 08:40 92 H 98 02/13/23 08:35 88 132/79 100 02/13/23 08:30 92 H 100 02/13/23 08:25 92 H 100 02/13/23 08:20 91 H 100 02/13/23 08:19 98 H 121/71 02/13/23 08:15 88 100 02/13/23 08:14 93 H 123/64 02/13/23 08:11 107 H 94 02/13/23 08:10 109 H 100 02/13/23 08:05 94 H 100 02/13/23 08:00 20 02/13/23 08:00 97 H 100 02/13/23 07:55 99 H 99 02/13/23 07:50 94 H 100 02/13/23 07:49 113 H 102/62 02/13/23 07:45 99 H 98 02/13/23 07:40 97 H 100 02/13/23 07:35 100 H 100 02/13/23 07:34 98.2 F 100 H 20 113/63 02/13/23 07:30 96 H 99 02/13/23 07:25 100 H 100 02/13/23 07:20 101 H 100 02/13/23 07:19 103 H 115/65 02/13/23 07:15 96 H 98 02/13/23 07:10 99 H 98 02/13/23 07:05 100 H 99 02/13/23 07:04 100 H 115/65 02/13/23 07:00 18 02/13/23 07:00 99 H 99 02/13/23 06:55 96 H 99 02/13/23 06:50 99 H 117/67 100 02/13/23 06:45 106 H 98 02/13/23 06:40 99 H 98 02/13/23 06:35 98 02/13/23 06:35 100 H 02/13/23 06:35 109 H 118/73 02/13/23 06:30 98 H 97 02/13/23 06:25 96 H 98 02/13/23 06:20 97 02/13/23 06:20 96 H 02/13/23 06:20 96 H 113/70 02/13/23 06:15 100 H 98 02/13/23 06:10 98 H 96 02/13/23 06:05 96 02/13/23 06:05 99 H 02/13/23 06:05 100 H 120/66 02/13/23 06:00 98 H 97 02/13/23 05:55 97 H 97 02/13/23 05:50 96 H 99 02/13/23 05:49 98.2 F 100 H 16 120/78 02/13/23 05:45 102 H 96 02/13/23 05:40 97 H 98 02/13/23 05:35 98 H 98 02/13/23 05:34 96 H 107/63 02/13/23 05:30 94 H 97 02/13/23 05:25 105 H 100 02/13/23 05:20 100 02/13/23 05:20 99 H 02/13/23 05:20 100 H 119/67 02/13/23 05:15 103 H 100 02/13/23 05:10 101 H 100 02/13/23 05:05 103 H 100 02/13/23 05:04 106 H 116/67 02/13/23 05:00 97.7 F 113 H 18 100 02/13/23 04:55 110 H 100 02/13/23 04:50 115 H 100 02/13/23 04:49 102 H 116/70 02/13/23 04:45 110 H 100 02/13/23 04:40 117 H 100 02/13/23 04:35 110 H 100 02/13/23 04:30 103 H 100 02/13/23 04:25 107 H 100 02/13/23 04:20 114 H 100 02/13/23 04:18 18 02/13/23 04:18 18 02/13/23 04:15 109 H 100 02/13/23 04:10 110 H 100 02/13/23 04:06 117 H 131/84 02/13/23 04:05 102 H 100 02/13/23 04:00 103 H 100 02/13/23 03:55 99 H 100 02/13/23 03:50 108 H 100 02/13/23 03:49 111 H 142/87 H 02/13/23 03:45 110 H 100 02/13/23 03:40 101 H 99 02/13/23 03:35 107 H 100 02/13/23 03:34 104 H 126/84 02/13/23 03:30 130 H 100 02/13/23 03:25 103 H 99 02/13/23 03:20 97.7 F 107 H 16 99 02/13/23 03:19 98 H 124/67 02/13/23 03:15 96 H 97 02/13/23 03:10 96 H 96 02/13/23 03:05 97 02/13/23 03:05 96 H 02/13/23 03:05 96 H 125/67 02/13/23 03:00 97 H 96 02/13/23 02:55 97 H 96 02/13/23 02:50 102 H 99 02/13/23 02:49 100 H 116/59 L 02/13/23 02:45 107 H 99 02/13/23 02:40 99 H 99 02/13/23 02:35 96 H 98 02/13/23 02:34 100 H 114/56 L 02/13/23 02:30 99 H 100 02/13/23 02:25 99 H 98 02/13/23 02:20 97 H 98 02/13/23 02:19 97 H 110/57 L 02/13/23 02:15 100 H 100 02/13/23 02:10 109 H 20 98 02/13/23 02:06 106 H 111/59 L 02/13/23 02:05 104 H 99 02/13/23 02:00 99 H 99 02/13/23 01:55 99 H 98 02/13/23 01:50 97 H 134/86 98 02/13/23 01:45 97 H 97 02/13/23 01:40 94 H 97 02/13/23 01:35 97 H 97 02/13/23 01:34 96 H 135/74 02/13/23 01:30 93 H 97 02/13/23 01:25 98 H 98 02/13/23 01:20 105 H 99 02/13/23 01:19 99 H 138/88 02/13/23 01:18 18 02/13/23 01:18 18 02/13/23 01:18 18 02/13/23 01:18 18 02/13/23 01:15 102 H 99 02/13/23 01:10 113 H 99 02/13/23 01:05 99 02/13/23 01:05 102 H 02/13/23 01:05 99 H 146/96 H 02/13/23 01:00 97 H 100 02/13/23 00:55 105 H 99 02/13/23 00:50 103 H 100 02/13/23 00:49 104 H 131/65 02/13/23 00:34 95 H 119/67 02/13/23 00:27 18 02/13/23 00:27 97.7 F 18 02/13/23 00:19 96 H 123/74 02/13/23 00:17 97 H 100 02/13/23 00:12 97 H 99 02/13/23 00:07 92 H 99 02/13/23 00:04 97 H 122/77 02/13/23 00:02 104 H 100 02/13/23 00:00 16 02/13/23 00:00 16 02/12/23 23:57 98 02/12/23 23:57 97 H 02/12/23 23:52 99 02/12/23 23:52 98 H 02/12/23 23:49 99 H 02/12/23 23:49 114/69 02/12/23 23:47 99 02/12/23 23:47 105 H 02/12/23 23:42 99 02/12/23 23:42 94 H 02/12/23 23:37 100 02/12/23 23:37 93 H 02/12/23 23:35 96 H 02/12/23 23:35 120/74 02/12/23 23:32 100 02/12/23 23:32 97 H 02/12/23 23:27 100 02/12/23 23:27 102 H 02/12/23 23:22 100 02/12/23 23:22 94 H 02/12/23 23:20 95 H 02/12/23 23:20 119/69 02/12/23 23:17 100 02/12/23 23:17 101 H 02/12/23 23:12 100 02/12/23 23:12 100 H 02/12/23 23:07 97 02/12/23 23:07 88 02/12/23 23:04 88 02/12/23 23:04 113/64 02/12/23 23:02 97 02/12/23 23:02 94 H 02/12/23 22:57 98 02/12/23 22:57 93 H 02/12/23 22:52 98 02/12/23 22:52 86 02/12/23 22:49 85 02/12/23 22:49 123/73 02/12/23 22:47 99 02/12/23 22:47 93 H 02/12/23 22:45 18 02/12/23 22:45 97.7 F 18 02/12/23 22:45 18 02/12/23 22:45 97.7 F 18 02/12/23 22:42 100 02/12/23 22:42 95 H 02/12/23 22:37 100 02/12/23 22:37 94 H Coding Level of Care Code None Diagnoses Obesity affecting , antepartum O99.210 Pre-eclampsia O14.90 Encounter for induction of labor Z34.90
[2023-02-13] MEDS: MAGNESIUM SULFATE / WTR 40 GM/1,000 ML BAG IV SCH (11:47)
[2023-02-13] MEDS ORDERED: bisacodyL 10 MG SUPP PR PRN (16:30)
[2023-02-13] MEDS ORDERED: DIPHTHERIA/TETANUS/PERTUSSIS Vaccine (Tdap, Age 7+yrs) 0.5mL SYR/VL IM ONE (16:30)
[2023-02-13] MEDS ORDERED: OXYTOCIN 30 UNITS/500 ML BAG IV PRN (16:30)
[2023-02-13] MEDS ORDERED: BENZOCAINE 20% SPRY 85 APPLN/85 GM CAN EXT PRN (16:30)
[2023-02-13] MEDS ORDERED: HYDROCORTISONE ACETATE 25 MG SUPP PR PRN (16:30)
--- NOTE | 2023-02-13 16:30 | Delivery Summary ---
Vaginal Delivery Summary Date of Service February 13, 2023 Vaginal Delivery Summary and 2nd Degree LAC PREOPERATIVE DIAGNOSIS: 1. Single intrauterine at 39 5/7 wga 2. Pre-eclampsia w/ severe features 3. BMI > 40 POSTOPERATIVE DIAGNOSIS: 1. Single intrauterine at 39 5/7 wga 2. Pre-eclampsia w/ severe features 3. BMI > 40 4. Delivered PROCEDURE: 1. Normal spontaneous vaginal delivery. SURGEON: Paty Urban MD ANESTHESIA: Epidural. ESTIMATED BLOOD LOSS: 300 mL FLUIDS: Continuous LR. URINE OUTPUT: None. COMPLICATIONS: None. CONDITION: Stable. INDICATIONS: 27 yo at 39 5/7 wga presented for routine OB visit 1 day ago. She had NST per protocol and was reactive however 2 variables were noted. She had also noted a recurring headache despite tylenol and borderline BP was noted so she was directed to L&D for further eval. On arrival, BPs were noted to be severe range and so she was treated with nifedipine 10 and 20, then labetalol 20mg before BPs improved. Labs were wnl and magnesium was started for pre- eclampsia with severe features diagnosis. Induction was begun with sutherland bulb and pitocin. Following sutherland bulb expulsion, pitocin was titrated up and she underwent arom. Following this, she had significant nausea and vomiting and continued to vomit through the night and decels were noted so pitocin was paused. Following recovery, pitocin was restarted and she continued to progress to complete and desired to push. FINDINGS: A viable male infant, weight pending with Apgars of 7 and 9 at 1 and 5 minutes respectively. SPECIMEN: Cord blood OPERATIVE REPORT: The patient progressed to 10 cm, 100% effaced and +2 station, pushed over intact perineum with anesthesia to deliver a viable male infant, weight and Apgars as above. Nursing had noted pt began pushing well and called for physician but pt continued to push and rapidly delivered entire by the time physician arrived to room immediately after being requested. was delivered to maternal abdomen and nursing staff. Delayed cord clamping was performed for 60 seconds. Cord was clamped and cut. Cord blood was obtained. Placenta delivered spontaneously intact with 3-vessel cord. IV oxytocin and fundal massage were given for excellent hemostasis. Vagina, cervix, perineum, and placenta were inspected. A second degree laceration was noted and repaired using 3-0 vicryl. There was excellent hemostasis. Sponge and needle counts correct x2. No sponges were left behind. Mother and stable in immediate period. [facility] Vaginal Delivery Charge Vaginal Delivery Codes: 12620 global code for the antepartum, delivery, and post- Delivery Type Details: and 2nd Degree LAC
--- NOTE | 2023-02-13 17:10 | Anesthesia Procedure Note ---
Date of Service February 13, 2023 Anesthesia Post Epidural Note Vital Signs Vital Signs: Temp Pulse Resp BP Pulse Ox O2 Del Method 36.6 C 108 H 20 160/92 H 100 Room Air 02/13/23 15:05 02/13/23 17:05 02/13/23 16:45 02/13/23 17:04 02/13/23 17:05 02/12/23 19:01 Pain Intensity Abdomen: Pain Intensity: 0 Notes Mental Status: alert / awake / arousable and participated in evaluation Nausea / Vomiting: adequately controlled Pain: adequately controlled Airway Patency, RR, SpO2: stable & adequate BP & HR: stable & adequate Hydration State: stable & adequate Neuraxial Anesthesia: was administered and sensory block resolved Anesthetic Complications: no major complications apparent and Pt Satisfied with anesthetic care Epidural: Removed without complications and With tip intact
[2023-02-13] MEDS: IBUPROFEN 600 MG TAB PO PRN ×2 (17:33→21:11)
[2023-02-13] MEDS ORDERED: Nursing to Pharmacy Communication SCH (18:45)
[2023-02-13] MEDS: DOCUSATE SODIUM 100 MG CAP PO SCH (21:11)
[2023-02-14] MEDS: IBUPROFEN 600 MG TAB PO PRN ×5 (01:08→20:49)
[2023-02-14] MEDS: LACTATED RINGER'S 1,000 ML IV PRN (03:36)
[2023-02-14] MEDS: MAGNESIUM SULFATE / WTR 40 GM/1,000 ML BAG IV SCH (05:52)
--- NOTE | 2023-02-14 06:29 | Obstetrical Progress Note ---
Date of Service <Kanika Alfonso MD - Last Filed: 02/14/23 07:14> February 14, 2023 Assessment & Plan <Kanika Alfonso MD - Last Filed: 02/14/23 07:14> (1) Encounter for assessment: Plan Patient with the above mentioned history and findings was evaluated at bedside and found awake, alert, oriented in all spheres, afebrile, and in no acute distress. Vital signs showed no fever and today's blood pressures remained stable and have ranged between 119-144 mmHg systolic BP and 63-86 mmHg diastolic BP. She has not been given anti-hypertensives since the day of her admission. She has denies symptoms of severity and her urine output has been good. Her blood type is O positive and today's hemoglobin is adequate at 11.0 g/dL. She is GBS negative and rubella equivocal, for which she should be receiving the MMR vaccine prior to her discharge. Overall, patient is doing well clinically. Will continue to hold diet until after magnesium is finished due to risk of seizures and subsequent aspiration. Will continue MgSO4 this morning and d/c it this afternoon after 24 hours of therapy are completed. After this, will encourage ambulation, remove the Andrew catheter, and progress diet. Will continue care. All questions were answered. <Paty Urban MD - Last Filed: 02/14/23 07:54> (1) Encounter for assessment: Subjective <Kanika Alfonso MD - Last Filed: 02/14/23 07:14> Idania is a 27 y/o female who is now PPD # 1 following at 39 5/7 weeks after IOL due to pre-eclampsia with severe features. Reports feeling well overall this morning. Has had a mild headache that she associates with not being able to sleep well, as well as some difficulty focusing vision. Denies having chest pain, SOB, palpitations, tachycardia, RUQ pain, fevers, chills, weakness, or any other symptom. Refers mild abdominal cramping & 3/10 pain well managed on analgesics. Voiding through Andrew, which contained clear urine in the collecting bag and the line. Urine output is good. Has not passed gas or had a bowel movement yet. Has not eaten since before laboring began due to recurrent episodes of vomiting during her laboring process. Has been drinking fluids such as water and juices and has tolerated them well. Denies any nausea currently and has not felt any since after her baby is born. Has not ambulated. Some persistent lochia with some improvement this morning. Currently and supplementing with bottle feeds. Constitutional: no fever, no chills or no sweats Denies shortness of breath or difficulty breathing Cardiovascular: no chest pain or no palpitations Breast: no breast pain Genitourinary (female): no dysuria Neurologic: no headache(s) Denies changes in vision Physical Exam <Kanika Alfonso MD - Last Filed: 02/14/23 07:14> General: Alert. Oriented to person, time, and place. Afebrile. No acute distress. Cardiac: Regular rate and rhythm, no murmurs/rubs/gallops. Respiratory: Clear to auscultation bilaterally. No increased work of breathing. Symmetrical chest rise. No respiratory distress. Abdomen: Soft, nontender, nondistended. Uterus: Uterine fundus firm, non-tender tender, palpable below umbilicus. Lower Extremities: SCDs in place. Bilateral lower extremity swelling without pitting. No deep calf pain. Meenu's negative bilaterally. Results & Data <Kanika Alfonso MD - Last Filed: 02/14/23 07:14> Vital Signs (Past 12 Hours) Vital Signs Temp Pulse Resp BP Pulse Ox O2 Del Method 02/14/23 06:17 89 99 02/14/23 06:12 97 H 96 02/14/23 06:09 99 H 93 02/14/23 06:07 96 H 98 02/14/23 06:02 92 H 100 02/14/23 05:57 83 100 02/14/23 05:52 86 99 02/14/23 05:47 92 H 98 02/14/23 05:44 103 H 92 02/14/23 05:42 85 100 02/14/23 05:37 86 100 02/14/23 05:32 84 100 02/14/23 05:27 20 02/14/23 05:27 90 99 02/14/23 05:26 93 H 139/81 02/14/23 05:24 92 H 90 02/14/23 05:22 89 100 02/14/23 05:17 94 H 100 02/14/23 05:12 82 98 02/14/23 05:07 86 97 02/14/23 05:02 87 99 02/14/23 04:57 83 96 02/14/23 04:52 84 97 02/14/23 04:47 82 97 02/14/23 04:42 85 98 02/14/23 04:37 85 97 02/14/23 04:32 80 99 02/14/23 04:30 16 02/14/23 04:27 99 02/14/23 04:27 79 02/14/23 04:27 79 119/63 02/14/23 04:22 81 100 02/14/23 04:17 80 96 02/14/23 04:12 79 97 02/14/23 04:07 88 99 02/14/23 04:02 83 99 02/14/23 03:57 89 98 02/14/23 03:52 86 98 02/14/23 03:47 95 H 96 02/14/23 03:36 90 97 02/14/23 03:31 91 H 98 02/14/23 03:30 36.5 C 02/14/23 03:30 20 02/14/23 03:27 91 H 139/95 02/14/23 03:26 88 98 02/14/23 03:21 90 97 02/14/23 03:16 90 98 02/14/23 03:11 86 98 02/14/23 03:06 87 97 02/14/23 03:01 86 97 02/14/23 02:56 96 H 97 02/14/23 02:51 87 98 02/14/23 02:46 96 H 98 02/14/23 02:41 83 96 02/14/23 02:36 84 97 02/14/23 02:31 85 96 02/14/23 02:27 17 02/14/23 02:27 93 H 134/69 02/14/23 02:26 94 H 97 02/14/23 02:23 85 93 02/14/23 02:21 88 94 02/14/23 02:16 89 93 02/14/23 02:11 92 02/14/23 02:11 87 02/14/23 02:11 84 94 02/14/23 02:06 96 02/14/23 02:06 86 02/14/23 02:06 84 94 02/14/23 02:01 84 97 02/14/23 01:56 90 96 02/14/23 01:51 87 97 02/14/23 01:46 86 97 02/14/23 01:41 85 98 02/14/23 01:36 86 99 02/14/23 01:31 84 100 02/14/23 01:26 86 140/84 100 02/14/23 01:21 84 100 02/14/23 01:16 91 H 99 02/14/23 01:15 16 02/14/23 01:11 87 100 02/14/23 01:06 94 H 100 02/14/23 01:01 83 100 02/14/23 00:56 86 100 02/14/23 00:51 87 100 02/14/23 00:46 84 100 02/14/23 00:41 87 100 02/14/23 00:36 83 99 02/14/23 00:31 91 H 100 02/14/23 00:30 20 02/14/23 00:27 93 H 126/79 02/14/23 00:26 94 H 100 02/14/23 00:21 93 H 100 02/14/23 00:16 88 99 02/14/23 00:11 91 H 99 02/14/23 00:06 91 H 99 02/14/23 00:01 91 H 99 02/13/23 23:56 87 98 02/13/23 23:51 93 H 99 02/13/23 23:46 81 100 02/13/23 23:41 84 99 02/13/23 23:36 85 99 02/13/23 23:31 91 H 98 02/13/23 23:28 36.8 C 18 02/13/23 23:28 18 02/13/23 23:27 99 H 148/83 H 02/13/23 23:26 102 H 97 02/13/23 23:21 93 H 98 02/13/23 23:16 103 H 98 02/13/23 23:11 88 96 02/13/23 23:06 90 96 02/13/23 23:01 87 95 02/13/23 22:56 86 95 02/13/23 22:53 85 94 02/13/23 22:51 83 98 02/13/23 22:46 81 100 02/13/23 22:41 95 H 100 02/13/23 22:36 84 100 02/13/23 22:31 86 100 02/13/23 22:29 16 02/13/23 22:26 85 143/89 H 100 02/13/23 22:21 86 100 02/13/23 22:16 85 100 02/13/23 22:11 93 H 100 02/13/23 22:06 89 100 02/13/23 22:01 89 100 02/13/23 21:56 91 H 100 02/13/23 21:51 98 H 100 02/13/23 21:46 93 H 100 02/13/23 21:41 92 H 100 02/13/23 21:36 91 H 99 02/13/23 21:31 88 99 02/13/23 21:26 88 144/82 H 100 02/13/23 21:21 96 H 100 02/13/23 21:16 101 H 100 02/13/23 21:15 20 02/13/23 21:11 103 H 99 02/13/23 21:06 93 H 99 02/13/23 21:01 96 H 100 02/13/23 20:56 95 H 98 02/13/23 20:51 99 H 98 02/13/23 20:46 99 H 100 02/13/23 20:41 100 H 100 02/13/23 20:36 104 H 100 02/13/23 20:31 94 H 100 02/13/23 20:29 16 02/13/23 20:27 96 H 137/82 02/13/23 20:26 100 H 100 02/13/23 20:21 91 H 100 02/13/23 20:16 91 H 100 02/13/23 20:11 89 100 02/13/23 20:06 94 H 100 02/13/23 20:01 94 H 99 02/13/23 19:56 94 H 98 02/13/23 19:51 100 H 98 02/13/23 19:46 102 H 99 02/13/23 19:41 98 H 98 02/13/23 19:36 98 H 97 02/13/23 19:31 98 H 99 02/13/23 19:26 107 H 99 02/13/23 19:21 100 H 99 02/13/23 19:20 36.8 C 18 02/13/23 19:20 18 02/13/23 19:20 36.8 C 18 98 Room Air 02/13/23 19:19 106 H 138/84 02/13/23 19:16 105 H 98 02/13/23 19:11 104 H 98 02/13/23 19:06 101 H 98 02/13/23 19:01 107 H 98 02/13/23 18:56 99 H 99 02/13/23 18:51 102 H 98 02/13/23 18:49 97 H 122/74 02/13/23 18:46 100 H 98 02/13/23 18:41 104 H 98 02/13/23 18:36 20 02/13/23 18:36 105 H 98 02/13/23 18:31 98 H 99 02/13/23 18:26 105 H 99 02/13/23 18:21 101 H 100 Supervising Physician <Paty Urban MD - Last Filed: 02/14/23 07:54> Co-Signing Physician Notes Resident Physician Supervision Note: I interviewed and examined the patient. Discussed with Dr. Alfonso and agree with findings and plan as documented in the note. Any exceptions or clarifications are listed here: PP1 s/p c/b PET w/ SF on mag. VSS, mild range BPs that don't indicated meds at this point. VSS, exam benign and wnl. Continue mag until 24hrs. UOP is good and clear again. Documented By: Paty Urban MD Resident Activity Tracking <Kanika Alfonso MD - Last Filed: 02/14/23 07:14> Resident Involvement: Resident Care Provided Care Provided: OB Delivery
[2023-02-14 07:10] LABS: Mean Corpuscular Hemoglobin 27.6 pg (25.0-34.0); Mean Corpuscular Hgb Conc 33.3 g/dL (32.0-36.0); Mean Corpuscular Volume 82.7 fL (80.0-100.0); Mean Platelet Volume 13.5 fL (9.4-12.4); Platelet Count 208 K/uL (130-400); RDW Coefficient of Variation 15.8 % (11.5-14.5); RDW Standard Deviation 47.6 fL (36.4-46.3); Red Blood Count 3.99 M/uL (4.20-5.40); White Blood Count 18.47 K/ul (4.8-10.8)
[2023-02-14 07:39] LABS: Albumin Globulin Ratio 1.1 (0.9-2); BUN Creatinine Ratio 7.1 (10-20); Bilirubin,Total 0.3 mg/dl (0.2-1.0); Calcium 6.3 mg/dl (8.6-10.3); Creatinine Clr Calc Pharmacy 140.4 ml/min; Est GFR (Non-African American) 96.6 ml/min; Globulin 2.7 gm/dl (2.5-4.0); Potassium 3.4 mmol/L (3.5-5.1); Total Protein 5.7 gm/dl (6.0-8.3)
[2023-02-14] MEDS: DOCUSATE SODIUM 100 MG CAP PO SCH ×2 (09:04→19:33)
[2023-02-14] MEDS: PRENATAL VITAMIN 1 TAB PO SCH (09:04)
[2023-02-14] MEDS ORDERED: bisacodyL 5 MG TABEC PO SCH (20:00)
[2023-02-15] MEDS: CALCIUM CARBONATE 500 MG CHEWABLE TAB PO PRN (01:15)
[2023-02-15] MEDS: IBUPROFEN 600 MG TAB PO PRN ×4 (01:27→16:26)
[2023-02-15] MEDS: PRENATAL VITAMIN 1 TAB PO SCH (09:12)
[2023-02-15] MEDS: DOCUSATE SODIUM 100 MG CAP PO SCH (09:12)
--- NOTE | 2023-02-15 09:45 | Obstetrical Progress Note ---
Date of Service February 15, 2023 Assessment & Plan (1) Encounter for assessment: PPD#2 doing well. BPs have been stable, normal. Will plan for BP check in 1 week in office - patient aware to book. Followup 6w in office . Reviewed instructions/plans. Subjective Ambulation: ambulating normally Voiding: no voiding problems Diet Tolerance:: regular diet Lochia:: Moderate Review of Systems All systems reviewed & are unremarkable except as noted in HPI & below Physical Exam Constitutional WD/WN, vitals as above no acute distress Respiratory normal respiratory effort Cardiovascular Rate/Rhythm: regular rate and regular rhythm Gastrointestinal (Abdomen) Inspection/Auscultation: abdomen normal to inspection; abdomen not distended Percussion/Palpation: abdomen soft Genitourinary OB Exam Abdomen: + fundal height Fundus: + firm; not tender Results & Data Vital Signs (Past 12 Hours) Vital Signs Temp Pulse Resp BP Pulse Ox O2 Del Method 02/15/23 07:32 36.7 C 85 18 124/82 98 Room Air 02/15/23 03:25 137/84 02/15/23 00:55 36.8 C 87 18 139/88 97 Room Air
[2023-02-15] MEDS ORDERED: MEASLES, MUMPS & RUBELLA VIRUS VACCINE (MMR) VIAL SQ ONE (10:54)
[2023-02-15] MEDS: ACETAMINOPHEN 325 MG TAB PO PRN ×2 (13:20→18:48)
== END 2023-02-15 20:14 | disposition home or self-care (01) | DRG 807 ==
LOC: OPB 12:04 → 4S1 12:06 → 4E2 02-14 18:37

== ENCOUNTER 2024-04-15 10:31 | Observation (INO) ==
--- NOTE | 2024-04-15 11:28 | Emergency Department Note ---
Impression & Plan Acute dehydration, Nausea & vomiting, Elevated LFTs, ED Provider Note CHIEF COMPLAINT: Vomiting, dehydration HISTORY OF PRESENTING ILLNESS: This (1 miscarriage) 28-year-old female patient who is approximately 8 weeks presents to the emergency department for nausea, vomiting, and concerns for dehydration. Symptoms started at midnight. The patient believes she has the "viral stomach bug," but unable to keep any fluids down and unable to eat anything. She has had what appears to be some light spotting of blood in her vomit the past couple episodes. She has also had a couple episodes of diarrhea as well. She denies any abdominal pain or pelvic pain, only the upset feeling prior to vomiting or diarrhea. She denies any vaginal bleeding. She denies any fevers. She denies any chest pain or shortness of breath. She denies any urinary symptoms. She rates her discomfort a 7/10. She took Zofran and Phenergan at home without improvement. No fevers. She follows with [facility] PROJECT COORDINATOR. REVIEW OF SYSTEMS: See HPI for pertinent positives and pertinent negatives. ALLERGIES: Penicillin MEDICATIONS: vitamins, Pepcid as needed PAST MEDICAL HISTORY: History of preeclampsia at 39 weeks with her second . Intermittent acid reflux. PHYSICAL EXAM: VITALS: Vitals are noted on the nurse's note and reviewed by myself. GENERAL: The patient appears nauseous and is having dry heaves on exam. However, she is non toxic and non-diaphoretic. SKIN: Capillary refill <2 sec. EYES: PERRLA. EOMI. Conjunctivae without injection, sclerae without icterus. NOSE: Patent without discharge. MOUTH: Mucous membranes moist. Uvula midline. Airway patent. NECK: Supple without nuchal rigidity. HEART: Regular rate and rhythm without murmurs gallops or rubs. LUNGS: Clear to auscultation bilaterally without wheezes, rales or rhonchi. No retractions or accessory muscle use. ABDOMEN: Positive bowel sounds x 4. Normal tympanic percussion. Soft, nontender to palpation. No hepatosplenomegaly. Pillai sign negative. No CVA tenderness. No guarding, rigidity, or rebound tenderness. No focal RLQ or LLQ tenderness. MUSCULOSKELETAL: No gross musculoskeletal defects. NEURO: Patient was alert and oriented. No focal neurological deficits. DIFFERENTIAL DIAGNOSIS: Differential diagnosis includes gastroenteritis, food borne illness, infections, appendicitis, diverticulitis, inflammatory bowel disease, obstruction, GI bleed, biliary pathology, volvulus, hepatitis, pancreatitis, cholecystitis, cholelithiasis, appendicitis, kidney stone, pyelonephritis, UTI, gastritis, gastroenteritis, mesenteric adenitis, obstruction, constipation, hernia, abdominal abscess, perforation, diverticulitis, IBD, ischemic colitis, abdominal aortic aneurysm, , ectopic , ovarian cyst, ovarian torsion, acute salpingitis, or others. ED COURSE AND MEDICAL DECISION MAKING: MEDICATIONS GIVEN: A total of 2 L normal saline solution bolus. Reglan 10 mg IV, Pepcid 20 mg IV, and Protonix 40 mg IV. Tylenol 1000 mg IV. Phenergan 25 mg IM. Zofran 4 mg IV. Benadryl 25 mg IV. INTERPRETATION OF LABS: I interpreted the labs with full lab results as below in the lab section of this note. Pertinent lab results discussed in the MDM section below. INTERPRETATION OF IMAGING: Imaging studies were interpreted by myself and read by radiology as per the imaging section of this note. Right upper quadrant ultrasound showed hepatomegaly without other acute abnormalities. Gallbladder is normal other than sludge. ultrasound shows a single live intrauterine with an estimated gestational age of 8 weeks 5 days. Small inferior retroplacental subchorionic hemorrhage. heart rate of 182 bpm. CHRONIC MEDICAL/SOCIAL CONDITIONS AFFECTING CARE: The patient is 8 weeks CONSULTATIONS: Dr. Wren of PROJECT COORDINATOR. On-call hospitalist. MDM SUMMARY: The patient was seen during a time of extreme volume and extreme acuity. Nursing triage protocols were initiated with IV lock, labs, and/or imaging studies conducted by protocol in the triage area. The patient was initially evaluated in a protocol room and then re-evaluated once they were taken back to an exam room. The patient is approximately 8 weeks and has been having nausea, vomiting, and diarrhea due to a presumed "stomach bug." However, she has been taking Zofran and Phenergan at home without improvement of the nausea and vomiting. She did notice some blood-tinged vomit the last couple of times. She denies any abdominal pain. Denies any pelvic pain or vaginal bleeding. The patient had taken Zofran and Phenergan as an outpatient just prior to arrival. Therefore, she was given Reglan 10 mg IV, Pepcid 20 mg IV, and Protonix 40 mg IV upon evaluation. She was given 1 L normal saline solution bolus initially. White blood cell count elevated at 12.26 which may be secondary to the . Hemoglobin normal at 13.7. Platelet count normal at 331. Sodium 134, glucose 131, AST 43, and ALT 92. The remainder the CMP without significant abnormalities. Lipase normal. Quantitative hCG 126,998. Urinalysis with 2+ protein, 3+ ketones, 1+ bilirubin, 3-5 red blood cells, 11-20 epithelial cells, and 1+ bacteria. Urine culture is pending. Due to the elevated LFTs, nausea, and vomiting, right upper quadrant ultrasound was obtained. Right upper quadrant ultrasound showed hepatomegaly without other acute abnormalities. Gallbladder is normal other than sludge. ultrasound shows a single live intrauterine with an estimated gestational age of 8 weeks 5 days. Small inferior retroplacental subchorionic hemorrhage. heart rate of 182 bpm. The patient had continued nausea and vomiting and she was given Tylenol 1000 mg IV and Phenergan 25 mg IM followed by Zofran 4 mg IV. The patient was given her second liter of normal saline solution bolus given the 3+ ketones in her urine. I discussed the patient with Dr. Wren of PROJECT COORDINATOR who reviewed the patient's laboratory studies. She feels her elevated LFTs are likely secondary to the dehydration. She is not concerned about the white blood cell count. She stated that if we could get her symptoms under control, they can continue to follow her up as an outpatient with close monitoring of her labs. When I discussed discharge with the patient, she started vomiting again. She was given Benadryl 25 mg IV, but was still symptomatic. The patient continued to deny any abdominal pain and had no abdominal tenderness on exam to suggest need for CT scan imaging or further abdominal imaging at this time. The patient was unable to give a stool sample while in the ER. Due to the patient's continued nausea and vomiting with significant dehydration and her , it was felt the patient would benefit from admission for further management of her symptoms and rehydration. I spoke with the on-call hospitalist who agreed to admit the patient for further evaluation and treatment. Please refer to their dictation for further details. The patient's care was transferred in stable condition. DIAGNOSIS: Dehydration Nausea and vomiting Elevated LFTs of 8 weeks Past Med/Surg History Problem List (Updated 04/15/24 @ 21:26 by Chela Galvez PA-C) (Acute) Elevated LFTs (Acute) Nausea & vomiting (Acute) Acute dehydration (Acute) Pre-eclampsia Obesity affecting , antepartum Need for MMR vaccine Encounter for anatomic survey Supervision of normal first No significant past medical history Medical History Chicken pox Depressed mood Hypertension Surgical History S/P wisdom tooth extraction Family History Grandfather (Maternal) Colorectal cancer Hypertension Kidney stone Mother Hypertension Unknown Hypertension Grandmother (Maternal) Diabetes High cholesterol Denies family history of Ovarian cancer Prostate cancer Myocardial infarction Breast cancer Social History Smoking Status: Never smoker Do You Dip or Chew Tobacco: No; Hx Alcohol Use: No Hx Substance Use: No Preferred Language: Ivorian Beater Tender Required: No Beliefs That Will Affect Care: None marital status: Current Living Situation: Spouse Current Living Situation Comment: and cats, changes litter current occupational status: 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- [employer] Feels Safe at Home: Yes Assistive Devices: None Allergies Allergies Allergy/AdvReac Type Severity Reaction Status Date / Time Penicillins Allergy Intermediate Rash Verified 11/17/23 17:07 Home Meds Home Medications Medication Instructions Recorded Confirmed acetaminophen 500 mg tablet 500 - 1,000 mg PO Q6H PRN Pain 11/17/23 04/15/24 (Tylenol Extra Strength) famotidine 20 mg tablet 20 mg PO BID PRN 11/17/23 04/15/24 HEARTBURN/INDIGESTION ibuprofen 200 mg tablet 200 mg PO Q6H PRN Pain 11/17/23 04/15/24 Results & Data (ED) Vital Signs Vital Signs - 24 hr 04/15/24 11:15 04/15/24 15:58 04/15/24 16:43 Temperature 36.3 C L Temperature Source Temporal Artery Scan Pulse Rate 105 H Pulse Rate [Right Finger] 115 H Pulse Rate from SpO2 Sensor Respiratory Rate 18 17 Respiratory Effort / Characteristics Non-Labored Spontaneous Non-Labored Spontaneous Respiratory Depth Normal Normal Respiratory Pattern Regular Blood Pressure 145/99 H 139/91 Blood Pressure [Left Arm] 115/71 Blood Pressure Mean 114 101 Blood Pressure Mean [Left Arm] 85 Blood Pressure Position [Left Arm] Sitting Pulse Oximetry 99 100 Oxygen Delivery Method Room Air Room Air Sepsis Recent Fever Within 48 Hours No Sepsis New/Unexplained Change in Mental Status No Sepsis Action Taken by Nursing No Action Required 04/15/24 16:45 04/15/24 16:51 04/15/24 17:00 Temperature Temperature Source Pulse Rate 96 H 102 H Pulse Rate [Right Finger] Pulse Rate from SpO2 Sensor 97 H Respiratory Rate Respiratory Effort / Characteristics Respiratory Depth Respiratory Pattern Blood Pressure 129/85 Blood Pressure [Left Arm] Blood Pressure Mean 99 Blood Pressure Mean [Left Arm] Blood Pressure Position [Left Arm] Pulse Oximetry 100 Oxygen Delivery Method Sepsis Recent Fever Within 48 Hours Sepsis New/Unexplained Change in Mental Status Sepsis Action Taken by Nursing 04/15/24 17:00 04/15/24 17:30 04/15/24 17:30 Temperature Temperature Source Pulse Rate 98 H 99 H Pulse Rate [Right Finger] Pulse Rate from SpO2 Sensor 97 H 99 H Respiratory Rate 19 Respiratory Effort / Characteristics Respiratory Depth Respiratory Pattern Blood Pressure 139/92 Blood Pressure [Left Arm] Blood Pressure Mean 104 Blood Pressure Mean [Left Arm] Blood Pressure Position [Left Arm] Pulse Oximetry 100 100 Oxygen Delivery Method Sepsis Recent Fever Within 48 Hours Sepsis New/Unexplained Change in Mental Status Sepsis Action Taken by Nursing 04/15/24 17:57 04/15/24 18:02 04/15/24 18:03 Temperature Temperature Source Pulse Rate 95 H 105 H Pulse Rate [Right Finger] Pulse Rate from SpO2 Sensor 96 H 106 H Respiratory Rate 20 19 Respiratory Effort / Characteristics Respiratory Depth Respiratory Pattern Blood Pressure 124/78 Blood Pressure [Left Arm] Blood Pressure Mean 87 Blood Pressure Mean [Left Arm] Blood Pressure Position [Left Arm] Pulse Oximetry 100 100 Oxygen Delivery Method Sepsis Recent Fever Within 48 Hours Sepsis New/Unexplained Change in Mental Status Sepsis Action Taken by Nursing 04/15/24 19:00 04/15/24 20:00 04/15/24 21:00 Temperature 36.8 C Temperature Source Oral Pulse Rate Pulse Rate [Right Finger] 115 H 106 H 121 H Pulse Rate from SpO2 Sensor Respiratory Rate 18 18 18 Respiratory Effort / Characteristics Non-Labored Spontaneous Non-Labored Spontaneous Non-Labored Spontaneous Respiratory Depth Normal Normal Normal Respiratory Pattern Regular Regular Regular Blood Pressure Blood Pressure [Left Arm] 159/101 H 111/79 118/92 Blood Pressure Mean Blood Pressure Mean [Left Arm] 120 89 100 Blood Pressure Position [Left Arm] Pulse Oximetry 100 100 100 Oxygen Delivery Method Room Air Room Air Room Air Sepsis Recent Fever Within 48 Hours Sepsis New/Unexplained Change in Mental Status Sepsis Action Taken by Nursing Laboratory Data 04/15/24 11:30 04/15/24 11:30 Lab Results 04/15/24 04/15/24 Range/Units 11:30 15:30 WBC 12.26 H (4.8-10.8) K/ul RBC 5.20 (4.20-5.40) M/uL Hgb 13.7 (12.0-16.0) g/dl Hct 40.4 (37.0-47.0) % MCV 77.7 L (80.0-100.0) fL MCH 26.3 (25.0-34.0) pg MCHC 33.9 (32.0-36.0) g/dL RDW Std Deviation 44.0 (36.4-46.3) fL RDW Coeff of Patrick 15.9 H (11.5-14.5) % Plt Count 331 (130-400) K/uL MPV 11.7 (9.4-12.4) fL Immature Gran % (Auto) 0.3 % Neut % (Auto) 93.6 % Lymph % (Auto) 3.4 % [place] % (Auto) 2.5 % Eos % (Auto) 0.0 % Baso % (Auto) 0.2 % Neut # (Auto) 11.47 H (1.40-6.50) K/uL Lymph # (Auto) 0.42 L (1.20-3.40) K/uL [place] # (Auto) 0.31 (0.11-0.59) K/uL Eos # (Auto) 0.00 (0.00-0.50) K/uL Baso # (Auto) 0.02 (0.00-0.20) K/uL Immature Gran # (Auto) 0.04 (0.01-0.20) K/uL Sodium 134 L (136-145) mmol/L Potassium 3.6 (3.5-5.1) mmol/L Chloride 103 (98-107) mmol/L Carbon Dioxide 22 (21-32) mmol/L Anion Gap 9 (3-11) BUN 11 (6-23) mg/dl Creatinine 0.62 (0.6-1.2) mg/dl Est Cr Clr Drug Dosing 187.3 ml/min eGFR 125.88 BUN/Creatinine Ratio 17.7 (10-20) Glucose 131 H (70-99(Fasting)) mg/dl Calcium 9.1 (8.6-10.3) mg/dl Magnesium 1.7 (1.7-2.4) mg/dl Total Bilirubin 0.7 (0.2-1.0) mg/dl AST 43 H (13-39) U/L ALT 92 H (7-52) U/L Alkaline Phosphatase 87 (34-104) U/L Total Protein 8.3 (6.0-8.3) gm/dl Albumin 4.6 (3.4-5.0) gm/dl Globulin 3.7 (2.5-4.0) gm/dl Albumin/Globulin Ratio 1.2 (0.9-2) Lipase 23 (11-82) U/L HCG, Quant [id number] mIU/ml Urine Color Dark Yellow Urine Appearance Cloudy A (Clear) Urine pH 6.0 (4.5-7.5) Ur Specific [place] 1.036 H (1.000-1.030) Urine Protein 2+ H (Negative) Urine Glucose (UA) Negative (Negative) Urine Ketones 3+ H (Negative) Urine Blood Negative (Negative) Urine Nitrite Negative (Negative) Urine Bilirubin 1+ H (Negative) Urine Urobilinogen Negative (Negative) Ur Leukocyte Esterase Negative (Negative) Urine WBC (Auto) 0-5 (0-5) /hpf Urine RBC (Auto) 3-5 H (0-2) /hpf U Hyaline Cast (Auto) 0-2 (0-2) /lpf U Epithel Cells (Auto) 11-20 H (0-2) /hpf Urine Bacteria (Auto) 1+ H (None Seen) Urine Mucus Present A (None Prsent) Administered Medications Discontinued Medications Diphenhydramine HCl (Diphenhydramine 50 Mg/Ml Vial) 25 mg IV NOW STA Stop: 04/15/24 18:59 Last Admin: 04/15/24 19:21 Dose: 25 mg Documented By: GCC Sodium Chloride (Nss) 1,000 mls @ 999 mls/hr IV .Q1H1M ONE Stop: 04/15/24 12:39 Last Infusion: 04/15/24 15:07 Dose: Infused Documented By: Admin: 04/15/24 11:51 Dose: 999 mls/hr Documented By: SNS Famotidine (Pepcid 20mg Iv Push) 20 mg in 5 mls @ 2.5 mls/min IV NOW STA Stop: 04/15/24 11:40 Last Admin: 04/15/24 11:51 Dose: 2.5 mls/min Documented By: SNS Pantoprazole Sodium (Protonix) 40 mg in 10 mls @ 5 mls/min IV NOW ONE Stop: 04/15/24 11:40 Last Admin: 04/15/24 11:51 Dose: 5 mls/min Documented By: FAVIOLA Acetaminophen (Ofirmev) 1,000 mg in 100 mls @ 400 mls/hr IV NOW STA Stop: 04/15/24 14:39 Last Infusion: 04/15/24 15:07 Dose: Infused Documented By: Admin: 04/15/24 14:46 Dose: 400 mls/hr Documented By: FAVIOLA Sodium Chloride (Nss) 500 mls @ 999 mls/hr IV .Q31M ONE Stop: 04/15/24 16:38 Last Admin: 04/15/24 16:44 Dose: Not Given Documented By: MARKK Sodium Chloride (Nss) 1,000 mls @ 999 mls/hr IV .Q1H1M ONE Stop: 04/15/24 17:41 Last Infusion: 04/15/24 18:11 Dose: Infused Documented By: Admin: 04/15/24 16:44 Dose: 999 mls/hr Documented By: MARKK Metoclopramide HCl (Metoclopramide Hcl Inj 5 Mg/Ml 2 Ml Vial) 10 mg IV NOW STA Stop: 04/15/24 11:40 Last Admin: 04/15/24 11:51 Dose: 10 mg Documented By: FAVIOLA Ondansetron HCl (Ondansetron Inj 2 Mg/Ml 2 Ml Vial) 4 mg IV NOW STA Stop: 04/15/24 18:01 Last Admin: 04/15/24 18:07 Dose: 4 mg Documented By: MARKK Promethazine HCl (Promethazine Hcl Inj 25 Mg/Ml 1 Ml Vial) 25 mg IM NOW STA Stop: 04/15/24 15:26 Last Admin: 04/15/24 15:55 Dose: 25 mg Documented By: [facility] Imaging Data Radiologist's Impression: Liver Ultrasound 04/15/24 12:50 US liver CLINICAL HISTORY: N/V, elevated LFTs, abd pain, TECHNIQUE: Multiple real-time sonographic images of the right upper quadrant were obtained. Comparison: None available at the time of this dictation. FINDINGS: Hepatomegaly is seen with heterogeneous contour, and the liver measures 23 cm. An echogenic area in the right lobe may represent a hemangioma measuring 1.6 cm. No intrahepatic ductal dilatation is seen. Low level internal echoes are identified layering dependently within the gallbladder, which is consistent with gallbladder sludge. The gallbladder wall is not thickened. There is no pericholecystic fluid present. The common duct measures 0.3 cm in diameter at the level of the hepatic artery. The visualized portions of the pancreas appear normal. The right kidney shows normal echogenicity, cortical thickness and renal contour. The right kidney shows no evidence of hydronephrosis or mass. No ascites or free fluid is seen in Molina's pouch. IMPRESSION: Hepatomegaly without acute abnormality. ACT 112: Negative or not required by law. Electronically signed by: Rasheed Tran M.D. 04/15/2024 2:22 PM Ultrasound 04/15/24 16:06 EXAM: US OB = 14 weeks fetus CLINICAL HISTORY: GI virus x 2 days with excessive vomiting and dehydration. 8 weeks .; , hx miscarriage. No pelvic pain. Confirm IUP. HCG [id number]. TECHNIQUE: Multiple ultrasound OB images were obtained through a transabdominal approach in real-time and duplex. COMPARISON: US OB done on 02/04/2023 was reviewed. FINDINGS: A single intrauterine gestational sac with a normal pole in transverse presentation has a CRL of 2.05cm and an estimated gestational age of 8 weeks, 5 days. The expected date of delivery is 11/20/2024. The heart rate is 181 bpm. The placenta is posterior. There is a retroplacental hypoechoic area inferior to the gestational sac measuring 1.1 x 0.8 x 0.8 cm mostly representing subchorionic hemorrhage. The yolk sac measures 0.4 cm The gestational sac measures 3.89 cm with an estimated GA of 9 weeks 1 day. The right ovary measures 3.3 x 2.2 x 2.0 cm. The left ovary is not visualized due to bowel. IMPRESSION: 1. Single live intrauterine with an estimated gestational age of 8 weeks, 5 days based on CRL. 2. The estimated gestational age is concordant with the expected interval growth. 3. Small inferior retroplacental subchorionic hemorrhage. Suggest follow-up and clinical evaluation. 4. Transverse presentation. 5. The heart rate is 182 bpm. LMP: 02/14/2024 MARGY by LMP :11/20/2024 GA by LMP: 8 weeks 5 days MARGY by prior AUA N/A MARGY by today's AUA exam 11/20/2024 Disclaimer: anomalies may be present but not detected. Chromosomal abnormalities cannot be ruled out with certainty, even with the normal findings. Electronically signed by Olvin Jeffery 04-15-2024 5:52 PM Discharge Plan Visit Data Chief Complaint: Vomiting Stated Complaint: 8WKS PREG, VOMITING, POSSIBLE DEHYDRATION ED Provider: Quang Delacruz ED Midlevel Provider: Chela Galvez Discharge Problem: Acute dehydration, Nausea & vomiting, Elevated LFTs, Patient Disposition: Admitted As Inpatient Condition: Good Forms Stand Alone Forms: EvalYou Prescriptions Prescriptions: No Action acetaminophen [Tylenol Extra Strength] 500 mg Tablet 500 - 1,000 mg PO Q6H PRN (Reason: Pain) ibuprofen 200 mg Tablet 200 mg PO Q6H PRN (Reason: Pain) famotidine 20 mg tablet 20 mg PO BID PRN (Reason: HEARTBURN/INDIGESTION) Referrals Referrals: PCP,NO [Primary Care Provider] - Discharge Problem: Nausea & vomiting Qualifiers: Vomiting type: unspecified Qualified Code(s): R11.2 - Nausea with vomiting, unspecified Qualifiers: Weeks of gestation: 8 weeks Qualified Code(s): Z3A.08 - 8 weeks gestation of
[2024-04-15] MEDS: FAMOTIDINE 20MG IV PUSH 20 MG/5 ML SYR IV STA (11:51)
[2024-04-15] MEDS: METOCLOPRAMIDE HCL INJ 5 MG/ML 2 ML VIAL IV STA (11:51)
[2024-04-15] MEDS: SODIUM CHLORIDE 0.9% 1,000 ML IV ONE ×2 (11:51→16:44)
[2024-04-15] MEDS: PANTOprazole 40 MG/10 ML SYR IV ONE (11:51)
[2024-04-15 11:57] LABS: Hematocrit (blood only) 40.4 % (37.0-47.0); Hemoglobin 13.7 g/dl (12.0-16.0); Mean Corpuscular Hemoglobin 26.3 pg (25.0-34.0); Mean Corpuscular Hgb Conc 33.9 g/dL (32.0-36.0); Mean Corpuscular Volume 77.7 fL (80.0-100.0); Mean Platelet Volume 11.7 fL (9.4-12.4); Platelet Count 331 K/uL (130-400); RDW Coefficient of Variation 15.9 % (11.5-14.5); White Blood Count 12.26 K/ul (4.8-10.8)
[2024-04-15 12:17] LABS: Albumin Globulin Ratio 1.2 (0.9-2); Albumin Level 4.6 gm/dl (3.4-5.0); BUN Creatinine Ratio 17.7 (10-20); Bilirubin,Total 0.7 mg/dl (0.2-1.0); Calcium 9.1 mg/dl (8.6-10.3); Creatinine Clr Calc Pharmacy 187.3 ml/min; Globulin 3.7 gm/dl (2.5-4.0); Magnesium 1.7 mg/dl (1.7-2.4); Potassium 3.6 mmol/L (3.5-5.1); Total Protein 8.3 gm/dl (6.0-8.3)
[2024-04-15 12:21] LABS: Basophils # (auto) 0.02 K/uL (0.00-0.20); Basophils % (auto) 0.2 %; Immature Granulocytes # (auto) 0.04 K/uL (0.01-0.20); Immature Granulocytes % (auto) 0.3 %; Lymphocytes # (auto) 0.42 K/uL (1.20-3.40); Lymphocytes % (auto) 3.4 %; Monocytes # (auto) 0.31 K/uL (0.11-0.59); Monocytes % (auto) 2.5 %; Neutrophils # (auto) 11.47 K/uL (1.40-6.50); Neutrophils % (auto) 93.6 %
--- NOTE | 2024-04-15 14:24 | Ultrasound Report ---
US liver CLINICAL HISTORY: N/V, elevated LFTs, abd pain, TECHNIQUE: Multiple real-time sonographic images of the right upper quadrant were obtained. Comparison: None available at the time of this dictation. FINDINGS: Hepatomegaly is seen with heterogeneous contour, and the liver measures 23 cm. An echogenic area in t he right lobe may represent a hemangioma measuring 1.6 cm. No intrahepatic ductal dilatation is seen . Low level internal echoes are identified layering dependently within the gallbladder, which is con sistent with gallbladder sludge. The gallbladder wall is not thickened. There is no pericholecystic f luid present. The common duct measures 0.3 cm in diameter at the level of the hepatic artery. The vi sualized portions of the pancreas appear normal. The right kidney shows normal echogenicity, cortical thickness and renal contour. The right kidney sh ows no evidence of hydronephrosis or mass. No ascites or free fluid is seen in Molina's pouch. IMPRESSION: Hepatomegaly without acute abnormality. ACT 112: Negative or not required by law. Electronically signed by: Rasheed Tran M.D. 04/15/2024 2:22 PM
[2024-04-15] MEDS: ACETAMINOPHEN 1,000 MG/100 ML VIAL IV STA ×2 (14:46→22:37)
[2024-04-15] MEDS: PROMETHAZINE HCL INJ 25 MG/ML 1 ML VIAL IM STA (15:55)
[2024-04-15 16:26] LABS: Appearance Urine Cloudy (Clear); Bacteria Urine Automated 1+ (None Seen); Bilirubin Urine 1+ (Negative); Blood Urine Negative (Negative); Cast Urine Automated 0-2 /lpf (0-2); Color Urine Dark Yellow; Glucose Urine UA Negative (Negative); Ketones Urine 3+ (Negative); Leukocyte Esterase Urine Negative (Negative); Mucus Urine Present (None Prsent); Nitrite Urine Negative (Negative); Protein Urine 2+ (Negative); Specific Gravity Urine 1.036 (1.000-1.030); Urobilinogen Urine Negative (Negative); WBC Urine Automated 0-5 /hpf (0-5)
[2024-04-15] MEDS: SODIUM CHLORIDE 0.9% 500 ML IV ONE (16:44)
--- NOTE | 2024-04-15 17:53 | Ultrasound Report ---
EXAM: US OB = 14 weeks fetus CLINICAL HISTORY: GI virus x 2 days with excessive vomiting and dehydration. 8 weeks .; , hx miscarriage. No pelvic pain. Confirm IUP. HCG [id number]. TECHNIQUE: Multiple ultrasound OB images were obtained through a transabdominal approach in real-time and duplex. COMPARISON: US OB done on 02/04/2023 was reviewed. FINDINGS: A single intrauterine gestational sac with a normal pole in transverse presentation has a CRL of 2.05cm and an estimated gestational age of 8 weeks, 5 days. The expected date of delivery is 11/20/2024. The heart rate is 181 bpm. The placenta is posterior. There is a retroplacental hypoechoic area inferior to the gestational sac measuring 1.1 x 0.8 x 0.8 cm mostly representing subchorionic hemorrhage. The yolk sac measures 0.4 cm The gestational sac measures 3.89 cm with an estimated GA of 9 weeks 1 day. The right ovary measures 3.3 x 2.2 x 2.0 cm. The left ovary is not visualized due to bowel. IMPRESSION: 1. Single live intrauterine with an estimated gestational age of 8 weeks, 5 days based on CRL. 2. The estimated gestational age is concordant with the expected interval growth. 3. Small inferior retroplacental subchorionic hemorrhage. Suggest follow-up and clinical evaluation. 4. Transverse presentation. 5. The heart rate is 182 bpm. LMP: 02/14/2024 MARGY by LMP :11/20/2024 GA by LMP: 8 weeks 5 days MARGY by prior AUA N/A MARGY by today's AUA exam 11/20/2024 Disclaimer: anomalies may be present but not detected. Chromosomal abnormalities cannot be ruled out with certainty, even with the normal findings. Electronically signed by Olvin Jeffery 04-15-2024 5:52 PM
[2024-04-15] MEDS: ONDANSETRON INJ 2 MG/ML 2 ML VIAL IV STA (18:07)
[2024-04-15] MEDS: diphenhydrAMINE 50 MG/ML VIAL IV STA (19:21)
--- NOTE | 2024-04-15 20:36 | History & Physical Report ---
Date of Service April 15, 2024 Assessment & Plan (1) Nausea & vomiting: Plan: - likely combination of and acute viral gastroenteritis - nauseas improving now-> clear liquid diet, advance as tolerated - mildly tachycardic- improved with fluid, WBC= 12 - noted episode of emesis with blood tinging; has not happened since presentation to ED, mildly tachycardic (sinus) but hemodynamically stable - continue with Zofran prn - continue with famotidine/pantoprazole - GI biofire pending - IVF as per below - repeat CBC/CMP qAM (2) Acute dehydration: Plan: - in the setting of acute GI illness - s/p 2L IVF in ED; continue NSS @125ml/hr for an addition 1L - clear liquid diet, advance as tolerated (3) Elevated LFTs: Plan: - mildly transaminitis -> likely secondary to acute viral illness - US liver with ?hepatomegaly, echogenic area ?hemangioma 1.6cm - trend CMP (4) : Plan: - 8 weeks - US over normal-> did note possible Small inferior retroplacental subchorionic hemorrhage-> no bleeding/abdominal pain at present; will need OB f/u to establish care for this (5) UTI (urinary tract infection): Plan: - UA consistent with UTI and is having dysuria - will start on ceftriaxone - does have history of penicillin allergy, rash when she was 6. Thinks she has tolerated cephalosporin in the past - f/u urine culture Plan Diet: Clears-> advance as tolerated Code: Full Dispo: Med Surg VTE Prophylaxis: Low Risk-> ambulation/SCD History of Present Illness Primary Care Provider: NO PCP 28 year old female presenting at 8 weeks with nauseas/vomiting. Symptoms started about 24 hours ago. Noted some diarrhea yesterday evening. Feels that it is viral. Has not been able to keep fluids down. Son and are also sick. Notes an episodes of emesis with blood tinged prior to arrival to ED; no further episodes. Does note some dysuria, denies hematuria, flank pain. Denies URI symptoms- cough, congestion. Denies fever/chills. Did have issues with GERD during her last . Also had preeclampsia. Denies abdominal pain, vaginal bleeding. Overall starting to feel a little better when I saw her, feels she may be able to tolerate some clear fluids. Denies note some reflux symptoms. ED Course Significant for: WBC= 12.26, AST= 43, ALT= 92, UA + bacteria, ketones, RBC. US liver with hepatomegaly. US with Single live intrauterine with an estimated gestational age of 8 weeks, 5 days based on CRL, Small inferior retroplacental subchorionic hemorrhage, heart rate is 182 bpm. S/p 2L IVF, metoclopramide, famotidine, pantoprazole, Zofran, Benadryl. Allergies Allergy/AdvReac Type Severity Reaction Status Date / Time Penicillins Allergy Intermediate Rash Verified 11/17/23 17:07 Home Medications Medication Instructions Recorded Confirmed Type acetaminophen 500 mg tablet 500 - 1,000 mg PO Q6H PRN Pain 11/17/23 04/15/24 History (Tylenol Extra Strength) famotidine 20 mg tablet 20 mg PO BID PRN 11/17/23 04/15/24 History HEARTBURN/INDIGESTION ibuprofen 200 mg tablet 200 mg PO Q6H PRN Pain 11/17/23 04/15/24 History potassium chloride 20 mEq 20 meq PO BID #3 tabs 04/17/24 Rx tablet,extended release Past Med/Surg History Problem List (Updated 04/17/24 @ 09:06 by Tiago Copeland MD) UTI (urinary tract infection) (Acute) Elevated LFTs (Acute) Nausea & vomiting (Acute) Acute dehydration (Acute) Pre-eclampsia Obesity affecting , antepartum Need for MMR vaccine Encounter for anatomic survey Supervision of normal first No significant past medical history Medical History Chicken pox Depressed mood Hypertension Surgical History S/P wisdom tooth extraction Family History Grandfather (Maternal) Colorectal cancer Hypertension Kidney stone Mother Hypertension Unknown Hypertension Grandmother (Maternal) Diabetes High cholesterol Denies family history of Ovarian cancer Prostate cancer Myocardial infarction Breast cancer Social History Smoking Status: Never smoker Do You Dip or Chew Tobacco: No; Hx Alcohol Use: No Hx Substance Use: No Preferred Language: Cypriot Communication Ability: Effective Fur Stretcher Required: No Beliefs That Will Affect Care: None marital status: Current Living Situation: Family Current Living Situation Comment: home with and 1yo son current occupational status: 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- [employer] Feels Safe at Home: Yes Assistive Devices: None Review of Systems Review of Systems: As per above Physical Exam Physical Exam: Constitutional: well-appearing, no acute distress HEENT: NCAT, no conjunctival injection CV: regular rhythm, no murmur appreciated, extremities well-perfused, no LE edema Resp: CTABL, no wheezes/rales/rhonchi appreciated, no increased work of breathing GI: soft, nondistended, nontender, BS normoactive MSK: no gross deformities appreciated Skin: warm, dry, no rash appreciated Neuro: alert, oriented, no focal neurologic deficit appreciated Results & Data Results & Data Vital Signs (Past 12 Hours) Vital Signs Temp Pulse Pulse Resp BP BP Pulse Ox 04/15/24 20:00 106 H 18 111/79 100 04/15/24 19:00 36.8 C 115 H 18 159/101 H 100 04/15/24 18:03 105 H 19 100 04/15/24 18:02 124/78 04/15/24 17:57 95 H 20 100 04/15/24 17:30 139/92 04/15/24 17:30 99 H 19 100 04/15/24 17:00 98 H 100 04/15/24 17:00 129/85 04/15/24 16:51 102 H 04/15/24 16:45 96 H 100 04/15/24 16:43 139/91 04/15/24 15:58 115 H 17 115/71 100 04/15/24 11:15 36.3 C L 105 H 18 145/99 H 99 O2 Del Method 04/15/24 20:00 Room Air 04/15/24 19:00 Room Air 04/15/24 18:03 04/15/24 18:02 04/15/24 17:57 04/15/24 17:30 04/15/24 17:30 04/15/24 17:00 04/15/24 17:00 04/15/24 16:51 04/15/24 16:45 04/15/24 16:43 04/15/24 15:58 Room Air 04/15/24 11:15 Room Air Supervising Physician Co-Signing Physician Notes Attending addendum: I have physically seen this patient, have supervised the medical residents activities, and agree with the H&P unless as otherwise noted. Assessment and Plan: #Nausea and vomiting- Symptoms consistent with acute viral gastroenteritis, with sensitivity of 8-week Clear liquid diet, advance as tolerated Zofran 4 mg IV every 6 hours as needed Famotidine 20 mg p.o. daily Pantoprazole 40 mg daily GI BioFire pending Follow serial CBC with differential, chemistry profile and magnesium level Status post 2 L normal saline bolus in the ED, continue NSS at 125 mL/h #Elevated LFTs- Mild transaminitis Likely viral process Ultrasound liver shows mild hepatomegaly and possible hemangioma 1.6 cm in size If transaminase not improving, further imaging such as MRCP may be indicated and/or consult to gastroenterology #8-week - ultrasound normal Patient seen by OB who will follow patient while in hospital #Urinary tract infection- Follow urine culture and sensitivity Empiric ceftriaxone 2 g IV daily #Admit to monitored bed and following closely Resident Activity Tracking Resident Involvement: Resident Care Provided Care Provided: Adult Hospital Medicine (1) Nausea & vomiting Vomiting type: unspecified Qualified Code(s): R11.2 - Nausea with vomiting, unspecified (4) Weeks of gestation: 8 weeks Qualified Code(s): Z3A.08 - 8 weeks gestation of
[2024-04-15] MEDS ORDERED: ACETAMINOPHEN 325 MG TAB PO PRN (22:05)
[2024-04-15] MEDS: SODIUM CHLORIDE 0.9% 1,000 ML IV SCH (22:37)
[2024-04-15] MEDS: cefTRIAXone SODIUM 2,000 MG/50 ML BAG IV SCH (22:38)
[2024-04-16] MEDS: FAMOTIDINE 20MG IV PUSH 20 MG/5 ML SYR IV SCH (01:30)
[2024-04-16 08:01] LABS: Albumin Globulin Ratio 1.3 (0.9-2); Albumin Level 3.3 gm/dl (3.4-5.0); BUN Creatinine Ratio 12.2 (10-20); Bilirubin,Total 0.3 mg/dl (0.2-1.0); Calcium 7.2 mg/dl (8.6-10.3); Globulin 2.6 gm/dl (2.5-4.0); Potassium 2.8 mmol/L (3.5-5.1); Total Protein 5.9 gm/dl (6.0-8.3)
--- NOTE | 2024-04-16 08:25 | Hospitalist Progress Note ---
Date of Service April 16, 2024 Assessment & Plan (1) Nausea & vomiting: Plan: Nausea vomiting With family members with similar illness. Suspicious for norovirus Nausea is slowly improving Clears, advance as tolerated Zofran as needed Pepcid BioFire pending Hypokalemic at 2.8 on 04/16, repletion ordered IV. If able to tolerate p.o. we will add adjunct p.o. (2) Elevated LFTs: Plan: Liver ultrasound: Hepatomegaly without acute abnormality. Echogenic area with right lobe suspicious for hemangioma. Asymptomatic. Cirrhosis is not noted. Can follow clinically and perform serial imaging as outpatient No additional risk factors for HCC Transaminitis on admission nearly completely resolved 04/16 (3) : Plan: - 8 weeks - US over normal-> did note possible Small inferior retroplacental subchorionic hemorrhage-> no bleeding/abdominal pain at present Outpatient OB follow-up She is at increased risk of loss due to this. There is no treatment or intervention for this. Counseling provided (4) UTI (urinary tract infection): Plan: - Patient with dysuria. UA consistent with UTI Penicillin allergy as a child, is tolerating Rocephin. Continue Rocephin, follow speciation Plan Diet: Clears-> advance as tolerated Code: Full Dispo: Med Surg VTE Prophylaxis: Low Risk-> ambulation/SCD Admission and Anticipated Discharge Date Admission Date: April 15, 2024 Ej Lo seen at the bedside. She is starting to feel better. Still nauseous with poor intake but improving. Last diarrhea was last night. Nauseous, but again feels a little bit better. Discussed subchorionic hemorrhage. Patient is aware no specific treatment for this but does raise risk of miscarriage. She will follow-up with OB as an outpatient. No other questions or concerns at time bedside visit. Due to inadequate p.o. intake and hypokalemia will stay for observation and target discharge tomorrow Physical Exam Physical Exam: General: A&Ox3. NAD. Cooperative. HEENT: Atraumatic, normocephalic. Pulm: CTAB A&P. -wheezes, -rales, -rhonchi. Symmetrical chest rise. No increased work of breathing. No respiratory distress. Cardiac: Slightly tachycardic, -mrg. Radial pulses intact and symmetrical. Abdominal: Nontender, nondistended, soft. BS present. Results & Data Results & Data Vital Signs (Past 12 Hours) Vital Signs Temp Pulse Resp BP Pulse Ox O2 Del Method 04/15/24 23:16 38.0 C H 04/15/24 22:00 38.6 C H 113 H 16 122/69 100 Room Air 04/15/24 21:00 121 H 18 118/92 100 Room Air PG Care Time/CCT Total # of Minutes Spent Total Time Spent with Patient: Total time spent is greater than 50% in coordination of care (as documented) at patient's floor/unit and/or counseling patient: Coding Level of Care Code 90319 SUB INP/OBS CARE 2/35MIN Diagnoses Nausea & vomiting R11.2 Vomiting type: unspecified Elevated LFTs R79.89 Z3A.08 Weeks of gestation: 8 weeks UTI (urinary tract infection) N39.0 (1) Nausea & vomiting Vomiting type: unspecified Qualified Code(s): R11.2 - Nausea with vomiting, unspecified (3) Weeks of gestation: 8 weeks Qualified Code(s): Z3A.08 - 8 weeks gestation of
[2024-04-16 08:37] LABS: Basophils # (auto) 0.01 K/uL (0.00-0.20); Basophils % (auto) 0.2 %; Eosinophils # (auto) 0.04 K/uL (0.00-0.50); Eosinophils % (auto) 0.8 %; Hematocrit (blood only) 32.2 % (37.0-47.0); Hemoglobin 10.6 g/dl (12.0-16.0); Immature Granulocytes # (auto) 0.03 K/uL (0.01-0.20); Immature Granulocytes % (auto) 0.6 %; Lymphocytes # (auto) 1.34 K/uL (1.20-3.40); Lymphocytes % (auto) 25.8 %; Mean Corpuscular Hemoglobin 25.7 pg (25.0-34.0); Mean Corpuscular Hgb Conc 32.9 g/dL (32.0-36.0); Monocytes # (auto) 0.53 K/uL (0.11-0.59); Monocytes % (auto) 10.2 %; Neutrophils # (auto) 3.25 K/uL (1.40-6.50); Neutrophils % (auto) 62.4 %; Platelet Count 226 K/uL (130-400); RDW Coefficient of Variation 15.9 % (11.5-14.5); Red Blood Count 4.13 M/uL (4.20-5.40)
[2024-04-16] MEDS: POTASSIUM CHLORIDE / WTR 10 MEQ/100 ML PLCT IV SCH (09:00)
[2024-04-16] MEDS: PANTOprazole 40 MG/10 ML SYR IV SCH (09:01)
[2024-04-17] MEDS: ONDANSETRON INJ 2 MG/ML 2 ML VIAL IV PRN (06:12)
[2024-04-17 07:09] LABS: Albumin Globulin Ratio 1.3 (0.9-2); Albumin Level 3.4 gm/dl (3.4-5.0); BUN Creatinine Ratio 6.5 (10-20); Bilirubin,Total 0.2 mg/dl (0.2-1.0); Calcium 7.8 mg/dl (8.6-10.3); Creatinine Clr Calc Pharmacy 254.6 ml/min; Globulin 2.7 gm/dl (2.5-4.0); Magnesium 1.9 mg/dl (1.7-2.4); Potassium 3.2 mmol/L (3.5-5.1); Total Protein 6.1 gm/dl (6.0-8.3)
[2024-04-17 08:11] VITALS: BP 128/84; PULSE 98; RESP 16; TEMP 97.9; O2SAT 98
[2024-04-17] MEDS: POTASSIUM CHLORIDE CRTAB 20 MEQ TABCR PO STA (08:48)
--- NOTE | 2024-04-17 09:09 | Discharge Summary ---
Discharge Summary Date of Service April 17, 2024 Principal Dx & Hospital Course #1 = Principal Diagnosis (1) Nausea & vomitin-year-old female 8 weeks who presented with severe nausea vomiting. Multiple family members with norovirus, presentation was consistent with norovirus. Was admitted for supportive care, symptoms were self-limited and improved by hospital day 1. Potassium was low and this was repleted during admission, patient was discharged to continue 3 additional doses of potassium 20 mEq twice daily. She was noted to have a small inferior retroplacental subchorionic hemorrhage during admission. This was briefly discussed with OB, and there is no specific treatment for this however does raise the risk of miscarriage. Patient was counseled, and will have outpatient OB follow-up. She was discharged to follow-up with her PCP, and should have a BMP in approximately 1 week to ensure her potassium normalizes. She was tolerating a normal breakfast and was asymptomatic at time of discharge (2) Elevated LFTs: (3) : (4) UTI (urinary tract infection): Admission HPI Per Admitting Provider 28 year old female presenting at 8 weeks with nauseas/vomiting. Symptoms started about 24 hours ago. Noted some diarrhea yesterday evening. Feels that it is viral. Has not been able to keep fluids down. Son and are also sick. Notes an episodes of emesis with blood tinged prior to arrival to ED; no further episodes. Does note some dysuria, denies hematuria, flank pain. Denies URI symptoms- cough, congestion. Denies fever/chills. Did have issues with GERD during her last . Also had preeclampsia. Denies abdominal pain, vaginal bleeding. Overall starting to feel a little better when I saw her, feels she may be able to tolerate some clear fluids. Denies note some reflux symptoms. ED Course Significant for: WBC= 12.26, AST= 43, ALT= 92, UA + bacteria, ketones, RBC. US liver with hepatomegaly. US with Single live intrauterine with an estimated gestational age of 8 weeks, 5 days based on CRL, Small inferior retroplacental subchorionic hemorrhage, heart rate is 182 bpm. S/p 2L IVF, metoclopramide, famotidine, pantoprazole, Zofran, Benadryl. Discharge Exam General: A&Ox3. NAD. Cooperative. HEENT: Atraumatic, normocephalic. Pulm: CTAB A&P. -wheezes, -rales, -rhonchi. Symmetrical chest rise. No increased work of breathing. No respiratory distress. Cardiac: RRR, -mrg. Radial pulses intact and symmetrical. Abdominal: Nontender, nondistended, soft. BS present. Discharge Plan Discharge Items Patient Disposition: Home - Self-Care Reason For Visit: VOMITTING Discharge Diagnosis: Norovirus Condition on Discharge: Good Activity: Resume your previous activity Non-emergency contact: Primary Care Provider and District Service Manager Call non-emergency contact if: you have any medication questions and your symptoms worsen Follow-up/Referrals: PCP,NO [Primary Care Provider] - Diet: Regular Addtl Attending Provider Instructions: You were seen in the hospital for norovirus and hypokalemia. Your symptoms improved. Norovirus is a self-limited virus which typically passes after 1 to 3 days. Your symptoms were improving and you are tolerating a regular diet at time of discharge. Please continue to use good handwashing to help prevent spread of this as you may be infectious for several days past symptoms. During your admission you were found to have a small inferior retroplacental subchorionic hemorrhage. There is no treatment for this, however this can slightly raise the risk of miscarriage. Please follow-up with your OB, a appointment is being scheduled for you as an outpatient. Your potassium levels were low during admission. You are given oral repletion. 3 additional doses of oral potassium have been prescribed as below. You should have blood check performed by your PCP in approximately 1 week to ensure your potassium levels normalize. If you develop any new or worsening symptoms including fever, chills, sweats, chest pain, chest pressure, difficulty breathing, uncontrolled nausea/vomiting, rash, wheezing, passing out or nearly passing out, bleeding, black/bloody bowel movements, or other new or concerning symptoms please call your primary care physician, or call 911 for re-evaluation in the emergency department if you are very concerned. Pending Studies at Discharge: No Stand-Alone Forms: My [employer], Smoking Cessation Medications and DC Order Prescriptions: New potassium chloride 20 mEq tablet extended release 20 meq PO BID Qty: 3 0RF Continued acetaminophen [Tylenol Extra Strength] 500 mg Tablet 500 - 1,000 mg PO Q6H PRN (Reason: Pain) ibuprofen 200 mg Tablet 200 mg PO Q6H PRN (Reason: Pain) famotidine 20 mg tablet 20 mg PO BID PRN (Reason: HEARTBURN/INDIGESTION) Discharge Orders: Discharge Order (Routine); Ordered 04/17/24 Ordered By: Tiago Copeland Admission Data Admit Date/Time: 04/15/24 20:15 Attending Provider: Tiago Copeland Admit Provider: Melinda Sawant Primary Care Provider: PCP,NO Other Providers: Darren Dutton Hospital Stay Data Consultations 04/15/24 19:27 ED Decision to Admit Stat Diagnostic Imagining Performed 04/15/24 12:50 US RUQ [US liver] Stat 04/15/24 16:06 US OB <= 14 weeks fetus Stat Pending Results Patient Have Any Pending Studies at Discharge: No Discharge Instructions Given to Patient (Per Discharging Provider) You were seen in the hospital for norovirus and hypokalemia. Your symptoms improved. Norovirus is a self-limited virus which typically passes after 1 to 3 days. Your symptoms were improving and you are tolerating a regular diet at time of discharge. Please continue to use good handwashing to help prevent spread of this as you may be infectious for several days past symptoms. During your admission you were found to have a small inferior retroplacental subchorionic hemorrhage. There is no treatment for this, however this can slightly raise the risk of miscarriage. Please follow-up with your OB, a appointment is being scheduled for you as an outpatient. Your potassium levels were low during admission. You are given oral repletion. 3 additional doses of oral potassium have been prescribed as below. You should have blood check performed by your PCP in approximately 1 week to ensure your potassium levels normalize. If you develop any new or worsening symptoms including fever, chills, sweats, chest pain, chest pressure, difficulty breathing, uncontrolled nausea/vomiting, rash, wheezing, passing out or nearly passing out, bleeding, black/bloody bowel movements, or other new or concerning symptoms please call your primary care physician, or call 911 for re-evaluation in the emergency department if you are very concerned. Total Time Total Time Spent Total Time Spent (In Minutes): Time spend day of discharge 31 minutes including direct patient care, documentation, review of labs and images, and coordination of care. Coding Level of Care Code 33800 INP/OBS DISCH >30 MIN Diagnoses Nausea & vomiting R11.2 Vomiting type: unspecified Elevated LFTs R79.89 Z3A.08 Weeks of gestation: 8 weeks UTI (urinary tract infection) N39.0
[2024-04-17 10:47] LABS: Adenovirus F 40/41 PCR Not Detected (NotDetected); Astrovirus PCR Not Detected (NotDetected); Campylobacter PCR Not Detected (NotDetected); Cryptosporidium PCR Not Detected (NotDetected); Cyclospora cayetanensis PCR Not Detected (NotDetected); Entamoeba histolytica PCR Not Detected (NotDetected); Enteroaggregative E.coli(EAEC) Not Detected (NotDetected); Enteropathogenic E.coli (EPEC) Not Detected (NotDetected); Enterotoxigenic E.coli (ETEC) Not Detected (NotDetected); Giardia lamblia PCR Not Detected (NotDetected); Plesiomonas shigelloides PCR Not Detected (NotDetected); Rotavirus A PCR Not Detected (NotDetected); Salmonella PCR Not Detected (NotDetected); Sapovirus PCR Not Detected (NotDetected); Shiga-like Toxin E.coli (STEC) Not Detected (NotDetected); Shigella/Enteroinvasive E.coli Not Detected (NotDetected); Vibrio cholerae PCR Not Detected (NotDetected); Vibrio species PCR Not Detected (NotDetected); Yersinia enterocolitica PCR Not Detected (NotDetected)
[2024-04-17 11:04] LABS: Norovirus GI/GII PCR DETECTED (NotDetected)
--- NOTE | 2024-04-17 21:25 | Billing Data ---
Date of Service April 17, 2024 Coding Level of Care Code 60936 INT INP/OBS CARE
== END 2024-04-17 13:42 | disposition home or self-care (01) ==
LOC: ED 10:31 → 3W 10:31 → SUATTDRO 20:15 → 3W 21:30

== ENCOUNTER 2024-10-28 15:18 | Inpatient (IN) ==
[2024-10-28 16:06] LABS: Hematocrit (blood only) 36.1 % (37.0-47.0); Hemoglobin 12.0 g/dl (12.0-16.0); Immature Granulocytes # (auto) 0.10 K/uL (0.01-0.20); Immature Granulocytes % (auto) 0.7 %; Mean Corpuscular Hemoglobin 25.8 pg (25.0-34.0); Mean Corpuscular Volume 77.6 fL (80.0-100.0); Platelet Count 249 K/uL (130-400); RDW Standard Deviation 41.2 fL (36.4-46.3); Red Blood Count 4.65 M/uL (4.20-5.40); White Blood Count 14.61 K/ul (4.8-10.8)
[2024-10-28 16:26] LABS: Alanine Aminotransferase 50.0 U/L (7-52); Albumin Globulin Ratio 1.0 (0.9-2); Alkaline Phosphatase 121.0 U/L (34-104); Anion Gap 8.0 (3-11); Bilirubin,Total 0.3 mg/dl (0.2-1.0); Blood Urea Nitrogen 11.0 mg/dl (6-23); Calcium 8.5 mg/dl (8.6-10.3); Carbon Dioxide 20.0 mmol/L (21-32); Chloride 107.0 mmol/L (98-107); Creatinine Clr Calc Pharmacy 189.7 ml/min; Globulin 3.4 gm/dl (2.5-4.0); Glucose 81.0 mg/dl (70-99(Fasting)); Potassium 3.8 mmol/L (3.5-5.1); Sodium 135.0 mmol/L (136-145); Total Protein 6.8 gm/dl (6.0-8.3)
[2024-10-28 16:28] LABS: Protein Creatinine Ratio Urine 0.2 (0-0.2); Total Protein Urine Random 24.2 mg/dl (0-11.9)
[2024-10-28] MEDS ORDERED: NIFEdipine 10 MG CAP PO STA (16:34)
[2024-10-28] MEDS: NIFEdipine 10 MG CAP PO STA (16:53)
[2024-10-28] MEDS: LACTATED RINGER'S 1,000 ML IV SCH (17:14)
[2024-10-28] MEDS: MAGNESIUM SULFATE / WTR 40 GM/1,000 ML BAG IV SCH (17:15)
[2024-10-28] MEDS: MAG SULFATE 4GM BOLUS FROM BAG IV ONE (17:17)
--- NOTE | 2024-10-28 17:18 | History & Physical Report ---
Date of Service October 28, 2024 Assessment & Plan (1) Hypertension affecting : Plan: Pt is a at 36w 5d with hx of GDM and preeclampsia in prior Routine labs ordered Anaesthesia consulted Monitor tracing GDM, monitor glucose Hep B not immune: Hep B vax advised Magnesium started Nifedipine ordered Will try external cephalic version per pt wishes Consider cesarian section (2) History of pre-eclampsia: History of Present Illness Primary Care Provider: Araceli Funez MD, FACOG Pt is a 29y/o female currently at 36w 5d with an MARGY 11/20/24 who is here for blood pressure check, breech presentation, and will be admitted for severe hypertension. Her is complicated by GDM and preeclampsia in prior . Currently not experiencing contractions; adequate movement; no fluid loss; no bloody show External FHT and external uterine monitors used; Category 1 tracing; FHT 130bpm with moderate variability, accelerations not appreciated, decelerations absent Had regular appointments with OB. Labs: Labs Lab Results OB Labs: Blood Type O Positive 05/04/24 Antibody Screen NEGATIVE 05/04/24 Hgb 12.4 g/dl (12.0-16.0) 09/07/24 Hct 37.2 % (37.0-47.0) 09/07/24 MCV 79.7 fL (80.0-100.0) L 05/04/24 Plt Count 297 K/uL (130-400) 05/04/24 Rubella IgG Antibody Immune (Immune) 05/04/24 RPR Nonreactive (Nonreactive) 07/10/22 Treponema pallidum Ab Negative (Negative) 09/07/24 Hep Bs Antigen Negative (Negative) 05/04/24 Hep Bs Antigen NON-REACTIVE (NON-REACTIVE) 07/10/22 Hepatitis C Antibody Negative (Negative) 05/04/24 Hepatitis C Ab (EIA) NON-REACTIVE (NON-REACTIVE) 07/10/22 HIV 1&2 Ab/P24 Ag 4thGn Negative (Negative) 05/04/24 HIV (1&2) Ag & Ab Conf NON-REACTIVE (NON-REACTIVE) 07/10/22 Glucose 1 Hr 50 gm 154 mg/dl (70-130) H 06/08/24 OB Optional Labs: Chlamydia trachomatis RNA Not Detected (NotDetected) 05/04/24 Neisseria gonorrhoeae RNA Not Detected (NotDetected) 05/04/24 Labs Reviewed: low risk panorama--akh Other screens: Cystic Fibrosis: neg SMA: neg GBS: neg Review of Systems : Denies fever, chills, sweats Denies shortness of breath, difficulty breathing, chest pain, palpitations, chest pressure. Denies breast pain. Denies dysuria. Denies headache or changes in vision. Allergies Allergy/AdvReac Type Severity Reaction Status Date / Time Penicillins Allergy Intermediate Rash Verified 10/28/24 13:47 Home Medications Medication Instructions Recorded Confirmed Type acetaminophen 500 mg tablet 500 - 1,000 mg PO Q6H PRN Pain 11/17/23 10/28/24 History (Tylenol Extra Strength) famotidine 20 mg tablet 20 mg PO BID PRN 11/17/23 10/28/24 History HEARTBURN/INDIGESTION PNV [id number] PO 04/27/24 10/28/24 History [ Gummies] promethazine [Phenergan] PO 04/27/24 10/28/24 History ondansetron HCl 4 mg tablet 4 mg PO Q6H PRN nausea and 05/24/24 10/28/24 Rx vomiting #20 tabs acetone (urine) test (Ketone Urine #50 ea 07/13/24 10/28/24 Rx Test strips) blood sugar diagnostic (OneTouch #150 ea 07/13/24 10/28/24 Rx Verio test strips) blood-glucose meter (OneTouch #1 ea 07/13/24 10/28/24 Rx Verio Reflect Meter) lancets 33 gauge (OneTouch Delica #150 ea 07/13/24 10/28/24 Rx Plus Lancet) Patient History Medical History Norovirus UTI (urinary tract infection) Elevated LFTs Pre-eclampsia Chicken pox Depressed mood Hypertension Surgical History S/P wisdom tooth extraction Family History Grandfather (Maternal) Colorectal cancer Hypertension Kidney stone Mother Hypertension Unknown Hypertension Grandmother (Maternal) Diabetes High cholesterol Denies family history of Ovarian cancer Prostate cancer Myocardial infarction Breast cancer Social History Smoking Status: Never smoker Second Hand Exposure: No; Do You Dip or Chew Tobacco: No; Hx Alcohol Use: No Hx Substance Use: No Preferred Language: Arabic Communication Ability: Effective Heat Treater Apprentice Required: No Beliefs That Will Affect Care: None marital status: marital status details: Nick Bruce (26) [phone] Current Living Situation: Spouse Current Living Situation Comment: Nick- , Sorin 1.5 current occupational status: employed current occupation: [employer] Other Information That Helps Us Care for You: No Feels Safe at Home: Yes Safety Concerns: Feels Safe At This Time Assistive Devices: None Physical Exam Physical Exam: General: patient resting comfortably, NAD, non-toxic in appearance, AAOx4, answers questions appropriately. Skin: warm, dry, intact HEENT: NC/AT, anicteric sclera, conjunctiva without injection Heart: S1/S2 heard, regular, no m/r/g Lungs: equal air entry bilaterally, no rales/rhonchi/wheezes Abd: Normoactive BS, soft, NT/ND, gravid uterus Ext: warm, no clubbing/cyanosis or edema; SCDs in place Neuro: nonfocal, speech intact, no facial droop, moving all extremities on command : FHR cat 1: baseline 130, moderate variability, accelerations not appreciated, decelerations absent, rare contractions Results & Data Vital Signs (Past 12 Hours) Vital Signs Temp Pulse Resp BP 10/28/24 16:28 96 H 162/97 H 10/28/24 16:13 94 H 163/92 H 10/28/24 16:11 100 H 169/101 H 10/28/24 16:08 36.7 C 105 H 20 169/101 H 10/28/24 16:03 105 H 139/96 10/28/24 15:43 110 H 144/99 H 10/28/24 15:33 103 H 159/107 H Supervising Physician Co-Signing Physician Notes Resident Physician Supervision Note: I interviewed and examined the patient. Discussed with Dr. Villela and agree with findings and plan as documented in the note. Any exceptions or clarifications are listed here: Admitted to L&D for preeclampsia with severe features. Magnesium sulfate. Baby with Breech presentation. Counseled patient on primary section vs external cephalic version - she would prefer to try version. Signed consent for both version and . External cephalic version performed - patient rec'd magnesium sulfate via IV for preeclampsia, therefore not given terbutaline. Using ultrasound guidance, cephalic version performed and baby gently guided clockwise backwards summersault. US at conclusion of procedure showed cephalic presentation, +FHR. Cervix checked, 1/thick/-2 - will proceed with induction of labor with pitocin. No sutherland bulb, as do not want to dislodge head. Documented By: Hermila Helton, Resident Activity Tracking Resident Involvement: Resident Care Provided Care Provided: OB Delivery
[2024-10-28] MEDS ORDERED: LACTATED RINGER'S 1,000 ML IV SCH (17:45)
[2024-10-28] MEDS ORDERED: LIDOCAINE 1% LOCAL 20 ML VIAL INFIL PRN (18:03)
[2024-10-28] MEDS ORDERED: OXYTOCIN 30 UNITS/NSS 30 UNITS/500 ML BAG IV PRN (18:03)
[2024-10-28] MEDS: ACETAMINOPHEN 500 MG TAB PO SCH (18:08)
[2024-10-28] MEDS: CITRIC ACID/SODIUM CITRATE 15 ML UDC PO SCH (18:09)
[2024-10-28] MEDS: ceFAZolin 3000MG 3,000 MG/72.5 ML BAG IV SCH (18:09)
[2024-10-28] MEDS: LACTATED RINGER'S 1,000 ML IV PRN (19:04)
[2024-10-28] MEDS: OXYTOCIN 30 UNITS/NSS 30 UNITS/500 ML BAG IV PRN (19:05)
[2024-10-28] MEDS: CALCIUM CARBONATE 500 MG CHEWABLE TAB PO STA (23:35)
[2024-10-28] MEDS: ONDANSETRON INJ 2 MG/ML 2 ML VIAL ONE (23:35)
[2024-10-28] MEDS: FAMOTIDINE 20 MG TAB PO STA (23:35)
--- NOTE | 2024-10-29 03:59 | Labor Progress Brief Note ---
Date of Service October 29, 2024 Subjective FHT Cat 1 [place] Q2-3 SVE 3/50/-3, cephalic by exam Declined AROM at this time. Initial did not think she wanted epidural, however exams have been painful. Had epidural last time, and concerned that she had numbness for some days after. Is now thinking she'd like to get epidural. Assessment & Plan Admission and Anticipated Discharge Date Admission Date: October 28, 2024 Results & Data Vital Signs (Past 12 Hours) Vital Signs Temp Pulse Resp BP Pulse Ox 10/29/24 03:38 96 H 84 L 10/29/24 03:30 98 H 89 L 10/29/24 03:09 95 H 143/95 H 10/29/24 02:18 88 135/86 10/29/24 02:00 16 10/29/24 02:00 16 10/29/24 01:24 92 H 155/96 H 10/29/24 01:21 100 H 167/95 H 10/29/24 01:00 16 10/29/24 01:00 16 10/29/24 00:00 16 10/29/24 00:00 16 10/28/24 23:49 97 H 149/91 H 10/28/24 23:46 100 H 156/98 H 10/28/24 23:42 105 H 173/104 H 10/28/24 23:15 96 H 133/86 10/28/24 23:00 16 10/28/24 23:00 36.5 C 16 10/28/24 22:15 99 H 154/90 H 10/28/24 22:00 16 10/28/24 22:00 16 10/28/24 21:15 100 H 145/96 H 10/28/24 21:00 16 10/28/24 21:00 16 10/28/24 20:15 100 H 139/96 10/28/24 20:00 16 10/28/24 20:00 16 10/28/24 19:16 89 92 10/28/24 19:15 90 100 10/28/24 19:11 98 H 149/92 H 10/28/24 19:00 16 10/28/24 19:00 36.5 C 10/28/24 18:55 101 H 142/99 H 10/28/24 18:40 101 H 142/94 H 10/28/24 18:24 96 H 147/93 H 10/28/24 18:10 102 H 143/97 H 10/28/24 17:41 110 H 169/89 H 10/28/24 17:20 18 10/28/24 16:28 96 H 162/97 H 10/28/24 16:13 94 H 163/92 H 10/28/24 16:11 100 H 169/101 H 10/28/24 16:08 36.7 C 105 H 20 169/101 H 10/28/24 16:03 105 H 139/96 Coding Level of Care Code None
[2024-10-29] MEDS: ONDANSETRON INJ 2 MG/ML 2 ML VIAL IV PRN (04:16)
[2024-10-29] MEDS ORDERED: SODIUM CHLORIDE 0.9% PF INJ 10 ML VIAL EPI PRN (04:53)
[2024-10-29] MEDS ORDERED: BUPIVACAINE 0.25% PF 30 ML VIAL EPI PRN (04:53)
[2024-10-29] MEDS ORDERED: NALOXONE HCL 1 MG in SODIUM CHLORIDE 0.9% 1,000 ML IV PRN (04:53)
[2024-10-29] MEDS ORDERED: LIDOCAINE 2% MPF LOCAL 5 ML VIAL EPI PRN (04:53)
[2024-10-29] MEDS ORDERED: diphenhydrAMINE 50 MG/ML VIAL IV PRN (04:53)
[2024-10-29] MEDS ORDERED: NALOXONE HCL 0.4 MG/1 ML VIAL/CARP IV PRN (04:53)
[2024-10-29] MEDS ORDERED: ONDANSETRON INJ 2 MG/ML 2 ML VIAL IV PRN (04:53)
[2024-10-29] MEDS ORDERED: NALBUPHINE HCL INJ 10 MG/ML AMP IV PRN (04:53)
[2024-10-29] MEDS ORDERED: ROPIVACAINE 0.5% PF 5 MG/ML 20 ML VIAL EPI PRN (04:53)
--- NOTE | 2024-10-29 04:53 | Anesthesiology Consultation ---
Date of Service October 29, 2024 Assessment & Plan ASA ASA3 Proposed Anesthesia Anesthesia Type: Labor Epidural Risk / Benefits Reviewed With: PT / POA / Parent / Guardian, Accepts Plan and Informed Consent Obtained History Height/Weight Height: 5 ft 4 in Weight: 138.346 kg Allergies Allergy/AdvReac Type Severity Reaction Status Date / Time Penicillins Allergy Intermediate Rash Verified 10/28/24 13:47 Medications Home Medications Medication Instructions Recorded Confirmed Last Taken acetaminophen 500 mg tablet 500 - 1,000 mg PO Q6H PRN Pain 11/17/23 10/28/24 Unknown (Tylenol Extra Strength) famotidine 20 mg tablet 20 mg PO BID PRN 11/17/23 10/28/24 Unknown HEARTBURN/INDIGESTION PNV no.[id number] PO 04/27/24 10/28/24 Unknown [ Gummies] promethazine [Phenergan] PO 04/27/24 10/28/24 Unknown ondansetron HCl 4 mg tablet 4 mg PO Q6H PRN nausea and 05/24/24 10/28/24 Unknown vomiting #20 tabs acetone (urine) test (Ketone Urine #50 ea 07/13/24 10/28/24 Unknown Test strips) blood sugar diagnostic (OneTouch #150 ea 07/13/24 10/28/24 Unknown Verio test strips) blood-glucose meter (OneTouch #1 ea 07/13/24 10/28/24 Unknown Verio Reflect Meter) lancets 33 gauge (OneTouch Delica #150 ea 07/13/24 10/28/24 Unknown Plus Lancet) Active Medications Generic Name Dose Route Start Last Admin Trade Name Freq PRN Reason Stop Dose Admin Magnesium Sulfate 40 gm in 1,000 mls @ 50 mls/hr 10/28/24 16:45 10/28/24 19:02 Magnesium Sulfate / Wtr IV 11/27/24 16:44 50 mls/hr .Q20H BREANNE Infusion Lactated Ringer's 1,000 mls @ 125 mls/hr 10/28/24 18:03 10/28/24 19:47 Lr IV 10/30/24 18:02 75 mls/hr .Q8H PRN Infusion L&D Protocol Protocol Oxytocin 30 units in 500 mls @ 13 mls/hr 10/28/24 18:08 07/19/25 01:15 Pitocin 30 Units/Nss IV 10/30/24 18:07 0.78 units/hr .Q24H PRN 13 mls/hr Labor Induction/Augmentation Titration Protocol 0.78 UNITS/HR Cefazolin Sodium 1,000 mg in 7.5 mls @ 2.5 mls/min 10/29/24 01:53 10/29/24 04:06 Ancef 1000mg IV 11/08/24 01:52 2.5 mls/min Q8H PRN Administration GBS(+) Until Delivery Ondansetron HCl 4 mg 10/28/24 23:32 10/29/24 04:16 Ondansetron Inj 2 Mg/Ml 2 Ml Vial IV 11/27/24 23:31 4 mg Q6H PRN Administration Nausea And Vomiting Past Medical History Medical History Norovirus UTI (urinary tract infection) Elevated LFTs Pre-eclampsia Chicken pox Depressed mood Hypertension Exercise / Class Metabolic Activity II 4-5 Yardwork/Stairs/Walk up hill Past Family History Family History Grandfather (Maternal) Colorectal cancer Hypertension Kidney stone Mother Hypertension Unknown Hypertension Grandmother (Maternal) Diabetes High cholesterol Denies family history of Ovarian cancer Prostate cancer Myocardial infarction Breast cancer Past Surgical History Surgical History S/P wisdom tooth extraction Past Anesthesia History No Hx of Anesthesia Complications and No Family Hx of Anesthesia Complications History of PONV No Hx of PONV and No Hx of Motion Sickness Social History Smoking Status: Never smoker Do You Dip or Chew Tobacco: No Hx Alcohol Use: No Hx Substance Use: No substance use type: does not use Review of Systems denies fever/cough/ colds/ chest pain/ SOB/ HAVEN denies HAVEN Physical Exam Vital Signs Last Vital Signs Temp 36.5 C 10/28/24 23:00 Pulse 102 H 10/29/24 05:31 Resp 16 10/29/24 04:00 BP 143/70 H 10/29/24 05:31 Pulse Ox 84 L 10/29/24 03:38 ENMT Mouth: no TMJ abnormality and no dentition abnormality Thyromental Distance: > or= 3.5 Finger Breadths Mallampati Class: II Neck neck extension not limited Respiratory normal respiratory effort; no respiratory distress Auscultation: lungs clear to auscultation bilaterally Cardiovascular Rate/Rhythm: regular rate and regular rhythm Neurologic moves all extremities Psychiatric Orientation: alert and oriented x 3 Testing Laboratory Results 10/28/24 15:48 10/28/24 15:48 Blood Type O Positive 10/28/24 15:48 Antibody Screen NEGATIVE 10/28/24 15:48 10/29/24 10/29/24 10/28/24 03:11 01:19 23:11 POC Glucose 82 79 70 10/28/24 10/28/24 10/28/24 22:05 20:45 20:44 POC Glucose 72 70 68 L* 10/28/24 10/28/24 19:32 18:52 POC Glucose 65 L* 73
[2024-10-29] MEDS: fentANYL 2 MCG/ML BUPIVacaine 0.125%-NSS 100ML BAG ONE (05:22)
[2024-10-29] MEDS: LIDOCAINE 2%/EPINEPHRINE 1:200,000 20 ML PF ONE (05:26)
[2024-10-29] MEDS: BUPIVACAINE 0.25% PF 30 ML VIAL ONE (05:26)
[2024-10-29] MEDS: PROMETHAZINE 12.5 MG/50.5 ML BAG IV PRN (06:04)
[2024-10-29] MEDS: CALCIUM CARBONATE 500 MG CHEWABLE TAB ONE (06:04)
[2024-10-29] MEDS: BUPIVACAINE 0.25% PF 30 ML VIAL EPI STA (07:34)
[2024-10-29] MEDS: SODIUM CHLORIDE 0.9% PF INJ 10 ML VIAL EPI STA (07:34)
[2024-10-29] MEDS: SODIUM CHLORIDE 0.9% PF INJ 10 ML VIAL ONE (07:34)
[2024-10-29] MEDS: LIDOCAINE 2%/EPINEPHRINE 1:200,000 20 ML PF EPI STA (07:34)
--- NOTE | 2024-10-29 09:15 | Labor Progress Brief Note ---
Date of Service October 29, 2024 Subjective comfortable, intermittent n/v. Assessment & Plan (1) Hypertension affecting : (2) Gestational diabetes: Plan Attempt at arom , ? success, Confirmed cephalic prior to attempt. fetus r eassuring with mag effect. Will continue current management. BS have been controlled. Admission and Anticipated Discharge Date Admission Date: October 28, 2024 Physical Exam Physical Exam: cx--very anterior under pubis, 4/50/-2/soft, attempts at arom, not sure I got it toco--q2-4min, pit at 17 efm--140s wtih min to mod variability, small accels , no decels, +scalp stim, mag effect us--cephalic Results & Data Vital Signs (Past 12 Hours) Vital Signs Temp Pulse Resp BP Pulse Ox 10/29/24 08:57 90 135/81 10/29/24 08:42 93 H 137/79 10/29/24 08:30 20 10/29/24 08:30 20 10/29/24 08:27 102 H 142/82 H 10/29/24 08:12 91 H 132/76 10/29/24 08:00 16 10/29/24 08:00 18 10/29/24 08:00 18 10/29/24 07:57 86 136/76 10/29/24 07:42 88 136/73 10/29/24 07:30 20 10/29/24 07:30 20 10/29/24 07:28 91 H 137/78 10/29/24 07:15 36.6 C 20 10/29/24 07:15 18 10/29/24 07:12 87 138/73 10/29/24 07:11 89 131/68 10/29/24 07:00 16 10/29/24 07:00 16 10/29/24 06:57 93 H 123/64 10/29/24 06:47 93 H 90 10/29/24 06:42 85 118/59 L 10/29/24 06:30 16 10/29/24 06:30 16 10/29/24 06:27 80 114/58 L 10/29/24 06:14 82 89 L 10/29/24 06:12 90 130/60 10/29/24 06:07 81 125/64 10/29/24 06:04 90 130/72 10/29/24 06:02 91 H 89 L 10/29/24 06:00 16 10/29/24 06:00 16 10/29/24 05:58 101 H 141/63 H 10/29/24 05:52 90 130/69 10/29/24 05:47 85 124/59 L 10/29/24 05:44 92 H 132/76 10/29/24 05:37 96 H 141/67 H 10/29/24 05:31 102 H 143/70 H 10/29/24 05:30 16 10/29/24 05:30 36.6 C 16 10/29/24 05:29 98 H 133/74 10/29/24 05:27 99 H 138/79 10/29/24 05:25 99 H 138/79 10/29/24 05:00 16 10/29/24 05:00 16 10/29/24 04:19 90 140/97 10/29/24 04:00 10/29/24 03:38 96 H 84 L 10/29/24 03:30 98 H 89 L 10/29/24 03:09 95 H 143/95 H 10/29/24 03:00 16 10/29/24 02:18 88 135/86 10/29/24 02:00 16 10/29/24 02:00 10/29/24 01:24 92 H 155/96 H 10/29/24 01:21 100 H 167/95 H 10/29/24 01:00 16 10/29/24 01:00 16 10/29/24 00:00 16 10/29/24 00:00 16 10/28/24 23:49 97 H 149/91 H 10/28/24 23:46 100 H 156/98 H 10/28/24 23:42 105 H 173/104 H 10/28/24 23:15 96 H 133/86 10/28/24 23:00 16 10/28/24 23:00 36.5 C 16 10/28/24 22:15 99 H 154/90 H 10/28/24 22:00 16 10/28/24 22:00 16 10/28/24 21:15 100 H 145/96 H Coding Level of Care Code None Diagnoses Hypertension affecting O16.9 Gestational diabetes O24.419
[2024-10-29] MEDS: FAMOTIDINE 20 MG TAB PO SCH (12:11)
[2024-10-29] MEDS: fentANYL 2 MCG/ML BUPIVacaine 0.125%-NSS 100ML BAG EPI PRN (12:38)
--- NOTE | 2024-10-29 13:49 | Labor Progress Brief Note ---
Date of Service October 29, 2024 Subjective comfortable Assessment & Plan (1) Hypertension affecting : (2) Gestational diabetes: Plan cont mag, pressures doing ok. sugars are controlled. finally gotten her arom. Maintain pit at 20 for now and see if arom helps. iupc if needed. anticipate . Admission and Anticipated Discharge Date Admission Date: October 28, 2024 Physical Exam Physical Exam: cx--less ant/4-5/75/-2 definite arom, clear, cephalic toco--q2-4, pit at 20 efm--130s wtih min to mod varability, small accels, +scalp stim, no decels Results & Data Vital Signs (Past 12 Hours) Vital Signs Temp Pulse Resp BP Pulse Ox 10/29/24 13:42 101 H 147/92 H 10/29/24 13:27 90 144/86 H 10/29/24 13:26 20 10/29/24 13:26 20 10/29/24 13:12 95 H 151/83 H 10/29/24 12:58 18 10/29/24 12:57 92 H 150/83 H 10/29/24 12:42 93 H 148/88 H 10/29/24 12:27 100 H 138/82 10/29/24 12:26 20 10/29/24 12:26 36.7 C 10/29/24 12:12 101 H 133/73 10/29/24 11:57 102 H 126/72 10/29/24 11:42 93 H 132/69 10/29/24 11:30 18 10/29/24 11:30 10/29/24 11:28 96 H 130/70 10/29/24 11:12 95 H 137/76 10/29/24 11:00 10/29/24 11:00 10/29/24 10:57 91 H 136/83 10/29/24 10:45 96 H 90 10/29/24 10:42 100 H 136/82 10/29/24 10:30 10/29/24 10:30 10/29/24 10:27 94 H 135/82 10/29/24 10:12 97 H 136/78 10/29/24 10:00 10/29/24 10:00 10/29/24 10:00 36.8 C 10/29/24 09:57 96 H 142/83 H 10/29/24 09:43 94 H 135/80 10/29/24 09:32 94 H 139/85 10/29/24 09:30 18 10/29/24 09:30 18 10/29/24 09:27 98 H 153/88 H 10/29/24 09:14 98 H 142/88 H 10/29/24 09:00 16 10/29/24 09:00 18 10/29/24 09:00 18 10/29/24 08:57 90 135/81 10/29/24 08:42 93 H 137/79 10/29/24 08:30 20 10/29/24 08:30 20 10/29/24 08:27 102 H 142/82 H 10/29/24 08:12 91 H 132/76 10/29/24 08:00 16 10/29/24 08:00 18 10/29/24 08:00 18 10/29/24 07:57 86 136/76 10/29/24 07:42 88 136/73 10/29/24 07:30 20 10/29/24 07:30 20 10/29/24 07:28 91 H 137/78 10/29/24 07:15 36.6 C 20 10/29/24 07:15 18 10/29/24 07:12 87 138/73 10/29/24 07:11 89 131/68 10/29/24 07:00 16 10/29/24 07:00 16 10/29/24 06:57 93 H 123/64 10/29/24 06:47 93 H 90 10/29/24 06:42 85 118/59 L 10/29/24 06:30 16 10/29/24 06:30 16 10/29/24 06:27 80 114/58 L 10/29/24 06:14 82 89 L 10/29/24 06:12 90 130/60 10/29/24 06:07 81 125/64 10/29/24 06:04 90 130/72 10/29/24 06:02 91 H 89 L 10/29/24 06:00 16 10/29/24 06:00 16 10/29/24 05:58 101 H 141/63 H 10/29/24 05:52 90 130/69 10/29/24 05:47 85 124/59 L 10/29/24 05:44 92 H 132/76 10/29/24 05:37 96 H 141/67 H 10/29/24 05:31 102 H 143/70 H 10/29/24 05:30 16 10/29/24 05:30 36.6 C 16 10/29/24 05:29 98 H 133/74 10/29/24 05:27 99 H 138/79 10/29/24 05:25 99 H 138/79 10/29/24 05:00 16 10/29/24 05:00 16 10/29/24 04:19 90 140/97 10/29/24 04:00 16 10/29/24 03:38 96 H 84 L 10/29/24 03:30 98 H 89 L 10/29/24 03:09 95 H 143/95 H 10/29/24 03:00 16 10/29/24 02:18 88 135/86 10/29/24 02:00 16 10/29/24 02:00 16 Coding Level of Care Code None Diagnoses Hypertension affecting O16.9 Gestational diabetes O24.419
--- NOTE | 2024-10-29 16:49 | Labor Progress Brief Note ---
Date of Service October 29, 2024 Subjective Notes she is starting to feel more on her right side. Assessment & Plan (1) Hypertension affecting : (2) Gestational diabetes: Plan no significant change, so IUPC placed to run pitocin, aim for >200mvus. fetus mostly category one and has some min variability secondary to mag effect. Probably are going to need a bit more pitocin. Admission and Anticipated Discharge Date Admission Date: October 28, 2024 Physical Exam Physical Exam: cx--5/90/-2 toco--difficult tracing, q 2-5min, pit at 20, iupc placed efm--120s with min to mod variability, +scalp stim, small accels, no decels Results & Data Vital Signs (Past 12 Hours) Vital Signs Temp Pulse Resp BP Pulse Ox 10/29/24 16:28 97 H 133/71 10/29/24 16:14 103 H 131/71 10/29/24 16:11 114 H 83 L 10/29/24 16:00 18 10/29/24 16:00 18 10/29/24 15:57 92 H 154/80 H 10/29/24 15:42 91 H 153/80 H 10/29/24 15:30 16 10/29/24 15:29 20 10/29/24 15:29 36.8 C 20 10/29/24 15:27 100 H 154/86 H 10/29/24 15:13 95 H 154/76 H 10/29/24 15:00 18 10/29/24 15:00 18 10/29/24 14:57 91 H 154/81 H 10/29/24 14:48 93 H 158/76 H 10/29/24 14:42 97 H 163/70 H 10/29/24 14:30 20 10/29/24 14:27 88 140/75 10/29/24 14:12 86 143/80 H 10/29/24 13:58 90 138/82 10/29/24 13:43 18 10/29/24 13:43 36.8 C 18 10/29/24 13:42 101 H 147/92 H 10/29/24 13:27 90 144/86 H 10/29/24 13:26 20 10/29/24 13:26 20 10/29/24 13:12 95 H 151/83 H 10/29/24 12:58 18 10/29/24 12:57 92 H 150/83 H 10/29/24 12:42 93 H 148/88 H 10/29/24 12:27 100 H 138/82 10/29/24 12:26 20 10/29/24 12:26 36.7 C 20 10/29/24 12:12 101 H 133/73 10/29/24 12:00 18 10/29/24 12:00 18 10/29/24 11:57 102 H 126/72 10/29/24 11:42 93 H 132/69 10/29/24 11:30 18 10/29/24 11:30 18 10/29/24 11:28 96 H 130/70 10/29/24 11:12 95 H 137/76 10/29/24 11:00 18 10/29/24 11:00 18 10/29/24 11:00 18 10/29/24 10:57 91 H 136/83 10/29/24 10:45 96 H 90 10/29/24 10:42 100 H 136/82 10/29/24 10:30 16 10/29/24 10:30 16 10/29/24 10:27 94 H 135/82 10/29/24 10:12 97 H 136/78 10/29/24 10:00 16 10/29/24 10:00 20 10/29/24 10:00 36.8 C 10/29/24 09:57 96 H 142/83 H 10/29/24 09:43 94 H 135/80 10/29/24 09:32 94 H 139/85 10/29/24 09:30 18 10/29/24 09:30 18 10/29/24 09:27 98 H 153/88 H 10/29/24 09:14 98 H 142/88 H 10/29/24 09:00 16 10/29/24 09:00 18 10/29/24 09:00 18 10/29/24 08:57 90 135/81 10/29/24 08:42 93 H 137/79 10/29/24 08:30 20 10/29/24 08:30 20 10/29/24 08:27 102 H 142/82 H 10/29/24 08:12 91 H 132/76 10/29/24 08:00 16 10/29/24 08:00 18 10/29/24 08:00 18 10/29/24 07:57 86 136/76 10/29/24 07:42 88 136/73 10/29/24 07:30 20 10/29/24 07:30 20 10/29/24 07:28 91 H 137/78 10/29/24 07:15 36.6 C 20 10/29/24 07:15 18 10/29/24 07:12 87 138/73 10/29/24 07:11 89 131/68 10/29/24 07:00 16 10/29/24 07:00 16 10/29/24 06:57 93 H 123/64 10/29/24 06:47 93 H 90 10/29/24 06:42 85 118/59 L 10/29/24 06:30 16 10/29/24 06:30 16 10/29/24 06:27 80 114/58 L 10/29/24 06:14 82 89 L 10/29/24 06:12 90 130/60 10/29/24 06:07 81 125/64 10/29/24 06:04 90 130/72 10/29/24 06:02 91 H 89 L 10/29/24 06:00 16 10/29/24 06:00 16 10/29/24 05:58 101 H 141/63 H 10/29/24 05:52 90 130/69 10/29/24 05:47 85 124/59 L 10/29/24 05:44 92 H 132/76 10/29/24 05:37 96 H 141/67 H 10/29/24 05:31 102 H 143/70 H 10/29/24 05:30 16 10/29/24 05:30 36.6 C 16 10/29/24 05:29 98 H 133/74 10/29/24 05:27 99 H 138/79 10/29/24 05:25 99 H 138/79 10/29/24 05:00 16 10/29/24 05:00 16 Coding Level of Care Code None Diagnoses Hypertension affecting O16.9 Gestational diabetes O24.419
--- NOTE | 2024-10-29 20:01 | Delivery Summary ---
Vaginal Delivery Summary Date of Service October 29, 2024 Vaginal Delivery Summary and 2nd Degree LAC Pre-operative Diagnosis: at 38 5/7 preeclampsia with severe symptoms obesity gdm breech Post-operative Diagnosis: same Procedure: external cephalic version magnesium prophylaxis pitocin induction epidural arom iupc second degree laceration repair QBL: 401 Anesthesia: epidural Procedure: Patient presented to labor and delivery with concerns for blood pressure in the office. She was found to have severe blood pressures and treated for pet with severe features. Mag was started. She was treated with one dose of po nifedipine. The fetus was found to be breech and she had a successful ECV by Dr. Helton. She was then started on pitocin. She eventually got an epidural, arom for clear fluid and IUPC at 5cm. She was found to have adequate contractions. She then progressed to c/c/+1. The patient pushed for about three contractioins to deliver a viable female infant in alexa position. The rest of the was then immediately delivered after the head. The baby was vigorous. The nose and mouth were bulb suctioned and the infant was placed in the maternal abdomen for drying and attention. Cord was clamped and cut at one minute of life. Cord blood and segment obtained. Placenta delivered spontaneous, intact with a three vessel cord. Cervix/sulci/rectum were intact. A second degree perineal laceration was repaired in the normal standard fashion. Hemostasis obtained with dilute pitocin and fundal massage and rectal cytotec. Apgars were 9/9. Mother and baby doing well at the end of the delivery. Patient will remain on labor and delivery for 24 hours of Magnesium prophylaxis. [facility] [place] Delivery Type Details: and 2nd Degree LAC
[2024-10-29] MEDS ORDERED: HYDROCORTISONE ACETATE 25 MG SUPP PR PRN (20:07)
[2024-10-29] MEDS: DIPHTHER/TETAN/PERTUS Vaccine (Tdap, Adol/Adult) 0.5mL IM ONE (20:18)
[2024-10-29] MEDS: IBUPROFEN 600 MG TAB PO PRN (21:02)
[2024-10-29] MEDS: DOCUSATE SODIUM 100 MG CAP PO SCH (21:02)
[2024-10-29] MEDS: BENZOCAINE 20% SPRY 85 APPLN/85 GM CAN EXT PRN (21:02)
[2024-10-30] MEDS: OXYTOCIN 30 UNITS/500ML NSS IV ONE (01:15)
--- NOTE | 2024-10-30 05:13 | Anesthesia Procedure Note ---
Date of Service October 30, 2024 Anesthesia Post Epidural Note Vital Signs Vital Signs: Temp Pulse Resp BP Pulse Ox 36.6 C 83 16 130/76 88 L 10/30/24 04:00 10/30/24 04:53 10/30/24 05:00 10/30/24 04:53 10/29/24 22:30 Pain Intensity Abdomen: Pain Intensity: 3 Notes Mental Status: alert / awake / arousable and participated in evaluation Nausea / Vomiting: adequately controlled Pain: adequately controlled Airway Patency, RR, SpO2: stable & adequate BP & HR: stable & adequate Hydration State: stable & adequate Neuraxial Anesthesia: was administered and sensory block resolved Anesthetic Complications: no major complications apparent and Pt Satisfied with anesthetic care Epidural: Removed without complications and With tip intact
--- NOTE | 2024-10-30 06:23 | Obstetrical Progress Note ---
Date of Service October 30, 2024 Assessment & Plan (1) exam: (2) Hypertension affecting : Plan Overall doing well. continues mag til about 8pm. no s/s of worsening disease. BPs remaining normal. Subjective Ambulation: limited ambulation Voiding: sutherland catheter in place Passing Gas:: Yes Diet Tolerance:: clear liquids Lochia:: Small Feeding Type:: breast feeding Notes she is crampy and the Mag is making her feel a little yucky , but overall ok. Patient denies s/s of pet Physical Exam Constitutional WD/WN, vitals as above Cardiovascular Rate/Rhythm: regular rate and regular rhythm Extremities: + edema (tr-+1); no calf tenderness Gastrointestinal (Abdomen) soft, nt, nd fundus difficult to palpate Neurologic patellar DTR's 2+ bilat, sensation intact Psychiatric A+Ox3, euthymic affect Results & Data Vital Signs (Past 12 Hours) Vital Signs Temp Pulse Resp BP Pulse Ox 10/30/24 05:42 99 H 111/74 10/30/24 05:00 16 10/30/24 04:53 83 130/76 10/30/24 04:42 87 165/100 H 10/30/24 04:00 36.6 C 16 10/30/24 04:00 16 10/30/24 03:42 80 139/86 10/30/24 03:00 10/30/24 02:42 70 135/79 10/30/24 02:02 73 130/85 10/30/24 02:00 16 10/30/24 01:00 16 10/30/24 00:43 79 135/80 10/30/24 00:00 16 10/29/24 23:42 88 139/94 10/29/24 23:00 36.6 C 16 10/29/24 23:00 16 10/29/24 22:30 109 H 88 L 10/29/24 22:00 16 10/29/24 21:42 96 H 153/92 H 10/29/24 21:27 83 128/73 10/29/24 21:12 96 H 128/72 10/29/24 21:00 16 10/29/24 20:57 83 126/72 10/29/24 20:42 82 127/71 10/29/24 20:27 80 127/86 10/29/24 20:12 94 H 133/66 10/29/24 20:00 16 10/29/24 19:57 93 H 157/66 H 10/29/24 19:49 100 H 164/86 H 10/29/24 19:45 16 10/29/24 19:24 16 10/29/24 19:24 36.6 C 16 10/29/24 18:58 94 H 163/91 H 10/29/24 18:42 83 143/84 H 10/29/24 18:30 18 10/29/24 18:30 18 10/29/24 18:27 93 H 142/87 H
[2024-10-30 07:06] LABS: Hematocrit (blood only) 33.4 % (37.0-47.0); Hemoglobin 11.3 g/dl (12.0-16.0)
[2024-10-30] MEDS: PRENATAL VITAMIN 1 TAB PO SCH (08:11)
[2024-10-30] MEDS: ACETAMINOPHEN 325 MG TAB PO PRN (09:08)
--- NOTE | 2024-10-31 05:56 | Obstetrical Progress Note ---
Date of Service October 31, 2024 Assessment & Plan (1) care following vaginal delivery: Plan: Idania Bruce is a 29 y/o F post- day 1 s/p complicated by pre-eclampsia with severe features Fells well today. Vital signs stable Continue post- care Encourage ambulation and Pain controlled with ibuprofen Hgb stable Mag was d/c at 8pm (10/30/24) Likely discharge home tomorrow, follow up with Dr. Natarajan in 6 weeks. Admission and Anticipated Discharge Date Admission Date: October 28, 2024 Anticipated date of discharge: 11/01/24 Supervising Physician Co-Signing Physician Notes Resident Physician Supervision Note: I interviewed and examined the patient. Discussed with Dr. Martinez and agree with findings and plan as documented in the note. Any exceptions or clarifications are listed here: Doing well. BPs are well controlled and wnl. no s/s of pet. Need to monitor blood pressures through the day today minimally. Documented By: Radha Natarajan MD, FACOG Subjective Idania Bruce is a 29 y/o F post- day 1 s/p complicated by pre-eclampsia with severe features Ambulation: ambulating normally Voiding: no voiding problems Passing Gas:: Yes Diet Tolerance:: regular diet Lochia:: Small Feeding Type:: breast feeding Current Pain Level: minimal - well-controlled with current pain regimen Resting comfortably this AM in NAD. Denies SIMPSON, CP, SOB, N/V/D, LE pain/swelling. Review of Systems Review of Systems: All systems reviewed & are unremarkable except as noted in HPI & below Physical Exam Physical Exam: General: patient resting comfortably, NAD, non-toxic in appearance, AA&O x 4, answers questions appropriately. Skin: warm, dry, intact HEENT: NC/AT, anicteric sclera, conjunctiva without injection, moist mucus membranes. Heart: +S1/S2, regular, no m/r/g Lungs: equal air entry bilaterally, no rales/rhonchi/wheezes Abd: +BS, soft, NT/ND, uterine fundus firm nontender at umbilicus. Ext: warm, no clubbing/cyanosis or edema, Meenu's neg. Neuro: nonfocal, patient AA&O x 4, speech intact, no facial droop, moving all extremities on command. Results & Data Vital Signs (Past 12 Hours) Vital Signs Temp Pulse Resp BP BP Pulse Ox O2 Del Method 10/31/24 03:40 36.8 C 16 129/82 99 Room Air 10/30/24 23:58 36.8 C 18 117/82 10/30/24 19:22 83 132/82 10/30/24 19:12 89 88 L 10/30/24 19:05 36.8 C 16 10/30/24 18:34 88 87 L 10/30/24 18:17 82 89 L 10/30/24 18:04 86 138/89
[2024-10-31 07:22] VITALS: RESP 18; O2SAT 98
[2024-10-31 15:28] VITALS: BP 139/86; PULSE 101; TEMP 99
== END 2024-10-31 16:00 | disposition home or self-care (01) | DRG 806 ==
LOC: OPB 15:18 → 4S1 15:19 → 4E2 10-30 20:27